=== PATIENT | female | born 1955 | race Caucasian/White ===

== ENCOUNTER 2018-08-03 11:19 | Inpatient (IN) | payer OTHER, SELFPAY ==
[2018-08-03] VITALS (20 sets, daily range): BP systolic 98–113; BP diastolic 60–69; PULSE 93–125; RESP 13–23; TEMP 36.6–37.6; O2SAT 95–100; BMI 17.3; BMI 16.9
--- NOTE | 2018-08-03 11:32 | CT_ITS ---
STUDY: CT ABDOMEN AND PELVIS WITH CONTRAST REASON FOR EXAM: Female, 63 years old. Weight loss. Bloody stools. RADIATION DOSAGE (If Supplied By Facility): CTDIvol = ( 11.35 ) mGy, DLP = ( 294.85 ) mGycm TECHNIQUE: Transaxial images were obtained from the dome of the diaphragm to the symphysis pubis with oral contrast. 100ML ml of Isovue 300 contrast was administered. Sagittal and coronal images were reconstructed. Individualized dose optimization techniques were used for this CT. COMPARISON: None. FINDINGS: There is a 1.4 cm x 1.3 cm x 1.5 cm lobulated nodule in the peripheral lateral aspect of the right lower lobe. The visualized portions of the heart are within normal limits. Normal liver. Normal gallbladder and extrahepatic biliary system. Normal spleen. Normal pancreas. Normal bilateral adrenal glands. Normal right kidney. Normal left kidney. Normal visualized stomach. Normal small intestine. There is a 9.9 cm x 6.5 cm x 10.1 cm mass arising from the rectosigmoid colon. A neoplastic process should be ruled out. Large amount of fecal material is seen in the colon in keeping with constipation. Prominent venous channels are seen in the pelvis suggestive of a venous collateral flow. The appendix is visualized and appears normal. Normal abdominal aorta. Normal inferior vena cava. Normal retroperitoneum. Normal urinary bladder. Normal abdominal wall. Grade 1 anterolisthesis of L5 on S1 with spondylolysis of the pars intraarticularis at the L5 vertebrae. CT/Abdomen/Pelvis WITH Contrast IMPRESSION: Large mass in the rectosigmoid junction with a large amount of fecal material proximal to this. A neoplastic process should BE ruled out. Lobulated nodular density in the lateral posterior aspect of the right lower lobe. Electronically Signed: Shukri Lacy MD at 13:45 EDT Tel [phone], Service support ,
--- NOTE | 2018-08-03 11:37 | ED.VISSUMM ---
- ER Visit Summary Date of Service: 08/03/18 Chief Complaint: Rectal bleeding History of Present Illness: The patient is a 63 F who presents with rectal bleeding. Started 3 days ago. She states she has had blood and mucus in her stool for that amount of time. She states that she does feel lightheaded. She was diagnosed as anemic previously. She denies any abdominal pain, nausea or vomiting. She has never had a colonoscopy in the past. She denies any recent antibiotic use. No history of C. difficile. No exposures to C. difficile. Physical Examination: Vital signs reviewed. HEENT exam unremarkable. Heart is tachycardic and regular rhythm. She does have a 3/6 musical systolic murmur heard best in the lower left sternal border. lungs are clear to auscultation. Abdomen is soft and nontender. Extremities reveal no edema. Skin exam normal. Neurologic exam normal. Test Results: Hemoglobin is 4.3, white blood cell count 15.8, sodium 135, AST 11, ALT 12. FOBT positive. CAT scan reveals a rectosigmoid mass. Emergency Department Course and Treatment: Patient was given 2 units of packed red blood cells due to the anemia. The CAT scan is concerning for a mass which could be the cause of the bleeding. This would explain why the patient tells me she has been having some weight loss over the past couple of months. I discussed this with Dr. Calle who will see the patient in consult. I also discussed this with hospitalist for admission. Patient will be admitted to PCU stepdown Treatment Plan: [] Disposition: Admit Impression: Lower GI bleed, colon mass This note was generated with [employer] dictation software. It may contain incorrect words, spelling, and punctuation that were not noted in review of the chart prior to signing ED Disposition - Plan for ED Patient: Chief Complaint: GI Bleed
[2018-08-03 12:11] LABS: Absolute Lymphocyte Count 1.95 X10^3/ul (0.83-4.51); Absolute Neutrophil Count 13.1 X10^3/uL (2.0-7.7); Basophil# 0.02 X10^3/uL; Basophil% 0.1 % (0-1); Eosinophil# 0.06 X10^3/uL; Eosinophils% 0.4 % (0-5); Lymphocyte # 1.95 X10^3/ul (4.0); Lymphocyte % 12.3 % (19-41); Mean Corp Hgb Conc 26.9 g/gl (32-36); Mean Corpuscular Hgb 17.7 pg (27.0-32.0); Mean Corpuscular Volume 65.8 fL (81-99); Mean Platelet Vol. 7.6 fl (6.2-12.0); Monocyte# 0.65 X10^3/uL; Monocyte% 4.1 % (0-10); Neutrophil % 82.9 % (47-70); Platelet Count 508 K/mm3 (150-450); RBC Distribution Width CV 17.7 % (11.6-14.6); RBC Distribution Width SD 42.9 fl (35.1-43.9); Red Blood Count 2.43 M/mm3 (4.2-5.4); White Blood Count 15.8 K/mm3 (4.4-11.0)
[2018-08-03 12:12] LABS: Differential Indicated SCAN CRITERIA MET; Hemoglobin 4.3 g/dl (12.0-15.0); POSITIVE COUNT YES; POSITIVE DIFFERENTIAL NO; POSITIVE MORPHOLOGY YES
--- NOTE | 2018-08-03 12:12 | ED.RN ---
Received critical result from [facility]ani from lab. Hemoglobin 4.3, Dr. Hanks aware.
[2018-08-03 12:27] LABS: ALB/GLOB Ratio 0.5 RATIO (0.9-2.4); AST(SGOT) 11 U/L (15-37); Alanine Aminotransfer ALT/SGPT 12 U/L (13-56); Albumin, Serum 2.2 g/dL (3.2-5.0); Alkaline Phosphatase 76 U/L (45-117); Anion Gap 9 (5-15); BUN 16 mg/dL (7-18); BUN/Creat Ratio 25.5 RATIO (10-20); Chloride 100 mmol/L (98-107); Creatinine, Serum 0.63 mg/dL (0.55-1.02); EST Glomerular Filtration Rate 103 mL/min (>60); Est Glom Filt Rate - Afr Amer 124 mL/min (>60); Estimated Creatinine Clearance 69.87 ml/min; Globulin 4.2 g/dL (2.2-4.2); Glucose 178 mg/dL (74-106); Hypochromasia 3+; Microcytosis 2+; Polychromasia 1+; Potassium 3.3 mmol/L (3.5-5.1); Protein, Total 6.4 g/dL (6.4-8.2); Sodium Level 135 mmol/L (136-145)
--- NOTE | 2018-08-03 14:39 | PCM.HP.STD ---
Problem List (1) Lung nodule Status: Acute (2) Rectosigmoid mass Status: Acute (3) GI bleed Status: Acute (4) Acute blood loss anemia Status: Acute History of Present Illness Date of Admission: 08/03/18 Chief Complaint: Rectal bleeding. The patient is a 63 year old F with no significant past medical history presented to the emergency department because of rectal bleeding. Her symptoms started 3 days ago with blood per rectum, mixed with mucus, described it as large amount, followed by loose stool and then she had another bloody bowel movement last night with large amount of blood and also followed by loose stool and without aggravating or relieving factors. Today when she woke up from sleep, she felt very weak, tired, dizzy and she had episode of palpitation. She denies syncope, presyncope, chest pain or shortness of breath. She denied epistaxis, hemoptysis, hematemesis or hematuria. She denied epigastric pain or heartburn. She mentioned that she was diagnosed with anemia a few months ago [place] PCP [facility] [place] and she was informed that it would be managed by diet. She mentioned that he has been complaining of weakness and fatigue over the last several months and she lost large amount of weight unintentionally. She moved to [place] recently and her relatives who did not see her for long time was shocked because of the amount of weight she lost. In the emergency department, initially she was tachycardic but her blood pressure stable and her heart rate stabilized after IV fluids. Her routine blood work was remarkable for leukocytosis, hemoglobin of 4.3 g/dL, platelet count were normal and her potassium was 3.3. Her glucose was 178. LFT and troponin were negative. CT scan abdomen and pelvis with contrast revealed large rectosigmoid mass as well as right lower lobe lung nodule. She is being admitted for GI bleed, acute blood loss anemia, a rectosigmoid mass, right lower lobe lung mass as well as hypokalemia. 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 Paternal History Items: No pertinent history Review of Systems Constitutional: Reports: Weakness, Weight Change, Fatigue. Denies: Anorexia, Chills, Fever Eyes: Denies: Blurred vision, Double vision, Drainage, Redness HEENT: Denies: Difficulty Hearing, Ear Pain, Eye Pain, Nasal Congestion, Sore Throat Cardiovascular: Reports: Light Headedness, Palpitations. Denies: Chest Pain, Chest Pressure, Chest Tightness, Syncope Respiratory: Denies: Cough, Pleuritic Pain, Shortness of Breath, Shortness of breath upon exertion, Sputum production, Wheezing Gastrointestinal: Reports: Hematochezia. Denies: Abdominal Pain, Constipation, Diarrhea, Nausea, Vomiting Genitourinary: Denies: Dysuria, Frequency, Hematuria Musculoskeletal: Denies: Arm Pain, Back Pain, Foot Pain Skin: Denies: Dryness, Rash Neurological: Denies: Balance problems, Double vision, Change in Speech, Slurred speech, Confusion, Incoordination, Numbness, Tingling Psychiatric: Denies: Anxiety, Depression Endocrine: Denies: Change in Body Habitus, Polydipsia VTE Information - Inpt Only VTE Present on Admission: No VTE Mechan Device Prophylaxis: None VTE Pharm Prophylaxis ordered?: No Patient Problems: Active and Suspected Problems Lung nodule (Acute) Rectosigmoid mass (Acute) GI bleed (Acute) Acute blood loss anemia (Acute) - Physical Exam General: Alert, Oriented x3, Cooperative, No apparent distress, - - Cachexia, pale. HEENT: Atraumatic, PERRLA, EOMI Oral: Moist Mucosa, No Gingival or Mucosal Lesions/ Ulcerations Neck: Supple, No JVD, Negative Carotid Bruits, Trachea Midline, Thyroid Normal Size and Texture Lungs: Clear to auscultation, Normal air movement, No rhonchi, No wheeze, No rales Cardiovascular: Regular rate, Regular Rhythm, Normal S1, Normal S2, Bradycardic Abdomen: Bowel Sounds Present, Soft, Non Tender, Non-Distended, No Hepato-splenomegaly Extremities: No clubbing, No cyanosis, No edema Skin: No rashes, No breakdown Lymphatic: No Cervical, Supraclavicular, or Inguinal Adenopathy Neurological: Cranial nerves II-XII grossly intact, Motor Exam 5/5 strength throughout Psych/Mental Status: Normal Affect, Appropriate, Alert and oriented to time, place, person, mood and affect Vital Signs Temp Pulse Resp BP Pulse Ox 98.8 F 93 18 106/61 95 08/03/18 13:51 08/03/18 13:51 08/03/18 13:51 08/03/18 13:51 08/03/18 13:51 Oxygen Delivery Method Room Air Weight: 104 lb 0.931 oz Body Mass Index (BMI) 17.3 Intake and Output for Last 24 Hours 08/01/18 08/02/18 08/03/18 23:59 23:59 23:59 Intake Total 0 / 0 Balance 0 / 0 Microbiology Past 72 Hours 08/03/18 11:50 Stool Occult Blood (BILL) - Final Stool Occult Blood Positive Laboratory Tests Past 24 Hrs 08/03/18 08/03/18 08/03/18 11:50 11:50 12:00 WBC 15.8 H RBC 2.43 L Hgb 4.3 L* Hct 16.0 L MCV 65.8 L MCH 17.7 L MCHC 26.9 L RDW 17.7 H RDW Differential 42.9 Plt Count 508 H MPV 7.6 Immature Gran % (Auto) 0.200 Neut % (Auto) 82.9 H Lymph % (Auto) 12.3 L [place] % (Auto) 4.1 Eos % (Auto) 0.4 Baso % (Auto) 0.1 Absolute Neuts (auto) 13.1 H Absolute Lymphs (auto) 1.95 Total Counted Not Reportable Diff Path Review May foll Polychromasia 1+ Hypochromasia 3+ Microcytosis 2+ Sodium Potassium Chloride Carbon Dioxide Anion Gap BUN Creatinine Estim Creat Clear Calc Est GFR (MDRD) Af Amer Est GFR (MDRD) Non-Af BUN/Creatinine Ratio Glucose Calcium Total Bilirubin AST ALT Alkaline Phosphatase Troponin I Total Protein Albumin Globulin Albumin/Globulin Ratio Blood Type Antibody Screen Crossmatch See Detail See Detail 08/03/18 08/03/18 12:00 12:00 WBC RBC Hgb Hct MCV MCH MCHC RDW RDW Differential Plt Count MPV Immature Gran % (Auto) Neut % (Auto) Lymph % (Auto) [place] % (Auto) Eos % (Auto) Baso % (Auto) Absolute Neuts (auto) Absolute Lymphs (auto) Total Counted Diff Path Review Polychromasia Hypochromasia Microcytosis Sodium 135 L Potassium 3.3 L Chloride 100 Carbon Dioxide 26.0 Anion Gap 9 BUN 16 Creatinine 0.63 Estim Creat Clear Calc 69.87 Est GFR (MDRD) Af Amer 124 Est GFR (MDRD) Non-Af 103 BUN/Creatinine Ratio 25.5 H Glucose 178 H Calcium 8.0 L Total Bilirubin 0.30 AST 11 L ALT 12 L Alkaline Phosphatase 76 Troponin I < 0.015 Total Protein 6.4 Albumin 2.2 L Globulin 4.2 Albumin/Globulin Ratio 0.5 L Blood Type A POSITIVE Antibody Screen NEGATIVE Crossmatch Clinical Impression(s) from Imaging Studies Abdomen/Pelvis CT 08/03/18 11:32 IMPRESSION: Large mass in the rectosigmoid junction with a large amount of fecal material proximal to this. A neoplastic process should BE ruled out. Lobulated nodular density in the lateral posterior aspect of the right lower lobe. Electronically Signed: Shukri Lacy MD at 13:45 EDT Tel [phone], Service support , Assessment/Plan All Active Problems Lung nodule (Acute) Rectosigmoid mass (Acute) GI bleed (Acute) Acute blood loss anemia (Acute) This is a 63 years old female patient presented to the emergency room because of rectal bleeding and she was found to have acute severe symptomatic blood loss anemia, rectosigmoid mass, right lower lobe lung nodule as well as hypokalemia and she is being admitted for blood transfusion and evaluation for possible malignancy. #1 acute blood loss anemia: This is likely because of lower GI bleed secondary to large rectosigmoid mass which could be due to malignancy. Admission hemoglobin is 4.3 g with sitter. At this time, her vital signs are stable, blood pressure stable. Plan: Admit to PCU stepdown, complete bedrest, IV fluids, transfuse total of 4 units of packed RBCs, repeat CBC and BMP tomorrow morning, pro time and INR, serum iron, TIBC, serum ferritin, TSH, PT OT evaluation and treatment. #2 GI bleed: This is probably due to the rectosigmoid mass, other differential diagnosis, be excluded. Plan: Blood transfusion, keep on clear liquids, general surgery consult for colonoscopy and biopsy. #3 rectosigmoid mass: Highly suspicious for colon cancer. Patient has no family history of colon cancer but history of breast cancer is evident on the mother side of her family. She never had colonoscopy. Plan as above, general surgery consult, colonoscopy. #4 right lower lobe lung nodule: This is seen on the CT scan abdomen. Could be due to benign or malignant. Plan: CT scan chest with contrast, pulmonology consult. #5 hypokalemia/mild hyponatremia: Potassium is 3.3, sodium is 135. Plan to increase potassium with IV fluids, repeat BMP tomorrow morning. #6 leukocytosis: This is likely reactive secondary to severe anemia. No evidence of infectious process. Plan as above, repeat CBC tomorrow morning. #7 hyperglycemia: Without history of diabetes. Glucose is 178. Plan: Accu-Cheks every 6 hours, hemoglobin A1c. #8 DVT prophylaxis: SCDs. No chemical prophylaxis because of anemia and rectal bleeding. This note was generated with [employer] dictation software. It may contain incorrect words, spelling, and punctuation that were not noted in checking the note before signing. Code Visit Inpatient E&M: 07477 Init Hosp L3
--- NOTE | 2018-08-03 14:45 | HP.PCM_ITS ---
Problem List (1) Lung nodule Status: Acute (2) Rectosigmoid mass Status: Acute (3) GI bleed Status: Acute (4) Acute blood loss anemia Status: Acute History of Present Illness Date of Admission: 08/03/18 Chief Complaint: Rectal bleeding. The patient is a 63 year old F with no significant past medical history presented to the emergency department because of rectal bleeding. Her symptoms started 3 days ago with blood per rectum, mixed with mucus, described it as large amount, followed by loose stool and then she had another bloody bowel movement last night with large amount of blood and also followed by loose stool and without aggravating or relieving factors. Today when she woke up from sleep, she felt very weak, tired, dizzy and she had episode of palpitation. She denies syncope, presyncope, chest pain or shortness of breath. She denied epistaxis, hemoptysis, hematemesis or hematuria. She denied epigastric pain or heartburn. She mentioned that she was diagnosed with anemia a few months ago [place] and she was informed that it would be managed by diet. She mentioned that he has been complaining of weakness and fatigue over the last several months and she lost large amount of weight unintentionally. She moved to [place] recently and her relatives who did not see her for long time was s hocked because of the amount of weight she lost. In the emergency department, initially she was tachycardic but her blood pressure stable and her heart rate stabilized after IV fluids. Her routine blood work was remarkable for leukocytosis, hemoglobin of 4.3 g/dL, platelet count were normal and her potassium was 3.3. Her glucose was 178. LFT and troponin were negative. CT scan abdomen and pelvis with contrast revealed large rectosigmoid mass as well as right lower lobe lung nodule. She is being admitted for GI bleed, acute blood loss anemia, a rectosigmoid mass, right lower lobe lung mass as well as hypokalemia. 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 Paternal History Items: No pertinent history Review of Systems Constitutional: Reports: Weakness, Weight Change, Fatigue. Denies: Anorexia, Chills, Fever Eyes: Denies: Blurred vision, Double vision, Drainage, Redness HEENT: Denies: Difficulty Hearing, Ear Pain, Eye Pain, Nasal Congestion, Sore Throat Cardiovascular: Reports: Light Headedness, Palpitations. Denies: Chest Pain, Chest Pressure, Chest Tightness, Syncope Respiratory: Denies: Cough, Pleuritic Pain, Shortness of Breath, Shortness of breath upon exertion, Sputum production, Wheezing Gastrointestinal: Reports: Hematochezia. Denies: Abdominal Pain, Constipation, Diarrhea, Nausea, Vomiting Genitourinary: Denies: Dysuria, Frequency, Hematuria Musculoskeletal: Denies: Arm Pain, Back Pain, Foot Pain Skin: Denies: Dryness, Rash Neurological: Denies: Balance problems, Double vision, Change in Speech, Slurred speech, Confusion, Incoordination, Numbness, Tingling Psychiatric: Denies: Anxiety, Depression Endocrine: Denies: Change in Body Habitus, Polydipsia VTE Information - Inpt Only VTE Present on Admission: No VTE Mechan Device Prophylaxis: None VTE Pharm Prophylaxis ordered?: No Patient Problems: Active and Suspected Problems Lung nodule (Acute) Rectosigmoid mass (Acute) GI bleed (Acute) Acute blood loss anemia (Acute) - Physical Exam General: Alert, Oriented x3, Cooperative, No apparent distress, - - Cachexia, pale. HEENT: Atraumatic, PERRLA, EOMI Oral: Moist Mucosa, No Gingival or Mucosal Lesions/ Ulcerations Neck: Supple, No JVD, Negative Carotid Bruits, Trachea Midline, Thyroid Normal Size and Texture Lungs: Clear to auscultation, Normal air movement, No rhonchi, No wheeze, No rales Cardiovascular: Regular rate, Regular Rhythm, Normal S1, Normal S2, Bradycardic Abdomen: Bowel Sounds Present, Soft, Non Tender, Non-Distended, No Hepato-splenomegaly Extremities: No clubbing, No cyanosis, No edema Skin: No rashes, No breakdown Lymphatic: No Cervical, Supraclavicular, or Inguinal Adenopathy Neurological: Cranial nerves II-XII grossly intact, Motor Exam 5/5 strength throughout Psych/Mental Status: Normal Affect, Appropriate, Alert and oriented to time, place, person, mood and affect Vital Signs Temp Pulse Resp BP Pulse Ox 98.8 F 93 18 106/61 95 08/03/18 13:51 08/03/18 13:51 08/03/18 13:51 08/03/18 13:51 08/03/18 13:51 Oxygen Delivery Method Room Air Weight: 104 lb 0.931 oz Body Mass Index (BMI) 17.3 Intake and Output for Last 24 Hours 08/01/18 08/02/18 08/03/18 23:59 23:59 23:59 Intake Total 0 / 0 Balance 0 / 0 Microbiology Past 72 Hours 08/03/18 11:50 Stool Occult Blood (BILL) - Final Stool Occult Blood Positive Laboratory Tests Past 24 Hrs 08/03/18 08/03/18 08/03/18 11:50 11:50 12:00 WBC 15.8 H RBC 2.43 L Hgb 4.3 L* Hct 16.0 L MCV 65.8 L MCH 17.7 L MCHC 26.9 L RDW 17.7 H RDW Differential 42.9 Plt Count 508 H MPV 7.6 Immature Gran % (Auto) 0.200 Neut % (Auto) 82.9 H Lymph % (Auto) 12.3 L [place] % (Auto) 4.1 Eos % (Auto) 0.4 Baso % (Auto) 0.1 Absolute Neuts (auto) 13.1 H Absolute Lymphs (auto) 1.95 Total Counted Not Reportable Diff Path Review May foll Polychromasia 1+ Hypochromasia 3+ Microcytosis 2+ Sodium Potassium Chloride Carbon Dioxide Anion Gap BUN Creatinine Estim Creat Clear Calc Est GFR (MDRD) Af Amer Est GFR (MDRD) Non-Af BUN/Creatinine Ratio Glucose Calcium Total Bilirubin AST ALT Alkaline Phosphatase Troponin I Total Protein Albumin Globulin Albumin/Globulin Ratio Blood Type Antibody Screen Crossmatch See Detail See Detail 08/03/18 08/03/18 12:00 12:00 WBC RBC Hgb Hct MCV MCH MCHC RDW RDW Differential Plt Count MPV Immature Gran % (Auto) Neut % (Auto) Lymph % (Auto) [place] % (Auto) Eos % (Auto) Baso % (Auto) Absolute Neuts (auto) Absolute Lymphs (auto) Total Counted Diff Path Review Polychromasia Hypochromasia Microcytosis Sodium 135 L Potassium 3.3 L Chloride 100 Carbon Dioxide 26.0 Anion Gap 9 BUN 16 Creatinine 0.63 Estim Creat Clear Calc 69.87 Est GFR (MDRD) Af Amer 124 Est GFR (MDRD) Non-Af 103 BUN/Creatinine Ratio 25.5 H Glucose 178 H Calcium 8.0 L Total Bilirubin 0.30 AST 11 L ALT 12 L Alkaline Phosphatase 76 Troponin I < 0.015 Total Protein 6.4 Albumin 2.2 L Globulin 4.2 Albumin/Globulin Ratio 0.5 L Blood Type A POSITIVE Antibody Screen NEGATIVE Crossmatch Clinical Impression(s) from Imaging Studies Abdomen/Pelvis CT 08/03/18 11:32 IMPRESSION: Large mass in the rectosigmoid junction with a large amount of fecal material proximal to this. A neoplastic process should BE ruled out. Lobulated nodular density in the lateral posterior aspect of the right lower lobe. Electronically Signed: Shukri Lacy MD at 13:45 EDT Tel [phone], Service support , Assessment/Plan All Active Problems Lung nodule (Acute) Rectosigmoid mass (Acute) GI bleed (Acute) Acute blood loss anemia (Acute) This is a 63 years old female patient presented to the emergency room because of rectal bleeding and she was found to have acute severe symptomatic blood loss anemia, rectosigmoid mass, right lower lobe lung nodule as well as hypokalemia and she is being admitted for blood transfusion and evaluation for possible malignancy. #1 acute blood loss anemia: This is likely because of lower GI bleed secondary to large rectosigmoid mass which could be due to malignancy. Admission hemoglobin is 4.3 g with sitter. At this time, her vital signs are stable, blood pressure stable. Plan: Admit to PCU stepdown, complete bedrest, IV fluids, transfuse total of 4 units of packed RBCs, repeat CBC and BMP tomorrow morning, pro time and INR, serum iron, TIBC, serum ferritin, TSH, PT OT evaluation and treatment. #2 GI bleed: This is probably due to the rectosigmoid mass, other differential diagnosis, be excluded. Plan: Blood transfusion, keep on clear liquids, general surgery consult for colonoscopy and biopsy. #3 rectosigmoid mass: Highly suspicious for colon cancer. Patient has no family history of colon cancer but history of breast cancer is evident on the mother side of her family. She never had colonoscopy. Plan as above, general surgery consult, colonoscopy. #4 right lower lobe lung nodule: This is seen on the CT scan abdomen. Could be due to benign or malignant. Plan: CT scan chest with contrast, pulmonology consult. #5 hypokalemia/mild hyponatremia: Potassium is 3.3, sodium is 135. Plan to increase potassium with IV fluids, repeat BMP tomorrow morning. #6 leukocytosis: This is likely reactive secondary to severe anemia. No evidence of infectious process. Plan as above, repeat CBC tomorrow morning. #7 hyperglycemia: Without history of diabetes. Glucose is 178. Plan: Accu- Cheks every 6 hours, hemoglobin A1c. #8 DVT prophylaxis: SCDs. No chemical prophylaxis because of anemia and rectal bleeding. This note was generated with [employer] dictation software. It may contain incorrect words, spelling, and punctuation that were not noted in checking the note before signing. Code Visit Inpatient E&M: 03266 Init Hosp L3
[2018-08-03 14:54] LABS: International Normalized Ratio 1.1; Prothrombin Time (Protime)PT. 14.6 SECONDS (11.7-14.9)
[2018-08-03 14:55] LABS: Partial Thromboplast Time 28.7 Seconds (24.1-36.2)
--- NOTE | 2018-08-03 16:15 | PCM.CONS.GEN ---
Problem List (1) Rectosigmoid mass Status: Acute (2) GI bleed Status: Acute (3) Acute blood loss anemia Status: Acute Reason for Consult Date of Consultation: 08/03/18 Reason for Consultation: Acute anemia. Rectosigmoid mass History of Present Illness: The patient is a 63 year old F who presents with a 2 day history of rectal bleeding. Patient noted she started to lose weight in last year intentionally. She noted when she lost the weight that she intended to, the weight continued to come off. She noted in January of this year she had change in bowel habits. She noted being seen by her then PCP who noted she was anemic. She noted she was told to correct her anemia by diet change which she did and thought this worked for a short period of time. 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 Two nights ago she had blood in her stool along with white mucous. She notes her stools are mostly liquidy. She denies hemorrhoids. She denies melena. She noted she became more fatigued and weak yesterday morning which brought her to the ED. She notes she has lost 25 pounds since August of 2017. She denies family history of colon cancer. She denies having previous colonoscopy. Patient does not take routine daily medications. She denies previous surgeries. 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 Paternal History Items: No pertinent history Review of Systems Constitutional: Reports: Anorexia, Weakness, Weight Change, Fatigue HEENT: Denies: Head Aches, Sinus Congestion, Sinus Drainage Cardiovascular: Denies: Chest Pain, Palpitations Respiratory: Denies: Cough, Shortness of breath at rest, Sputum production Gastrointestinal: Reports: Diarrhea, Hematochezia Genitourinary: Denies: Dysuria Musculoskeletal: Denies: Joint Pain, Joint Tenderness Skin: Denies: Rash, Wounds Neurological: Denies: Numbness, Tingling, Focal weakness Psychiatric: Denies: Anxiety, Depression, Homicidal Ideations, Suicidal Ideations Hematologic/ Lymphatic: Reports: Anemia Patient Problems: Active and Suspected Problems Lung nodule (Acute) Rectosigmoid mass (Acute) GI bleed (Acute) Acute blood loss anemia (Acute) - Physical Exam General: Alert, Oriented x3, Cooperative HEENT: Atraumatic, PERRLA, EOMI, Normocephalic Neck: Supple, No JVD, Negative Carotid Bruits Lungs: Clear to auscultation, Normal air movement Cardiovascular: Regular rate, No murmurs Abdomen: Bowel Sounds Present, Soft, Non Tender Extremities: No edema, Capillary Refill Less than 3 Seconds Skin: No rashes, No breakdown Musculoskeletal: No Tenderness to Palpation of Joints or Extremities Neurological: Neuro grossly intact Psych/Mental Status: Normal Affect, Appropriate Vital Signs Temp Pulse Resp BP Pulse Ox 98.5 F 94 16 104/66 100 08/03/18 16:00 08/03/18 16:00 08/03/18 16:00 08/03/18 16:00 08/03/18 16:00 Oxygen Delivery Method Room Air Weight: 103 lb 2.821 oz Body Mass Index (BMI) 16.9 Intake and Output for Last 24 Hours 08/01/18 08/02/18 08/03/18 23:59 23:59 23:59 Intake Total 400 / 400 Balance 400 / 400 Microbiology Past 72 Hours 08/03/18 11:50 Stool Occult Blood (BILL) - Final Stool Occult Blood Positive Laboratory Tests Past 24 Hrs 08/03/18 08/03/18 08/03/18 11:50 11:50 12:00 WBC 15.8 H RBC 2.43 L Hgb 4.3 L* Hct 16.0 L MCV 65.8 L MCH 17.7 L MCHC 26.9 L RDW 17.7 H RDW Differential 42.9 Plt Count 508 H MPV 7.6 Immature Gran % (Auto) 0.200 Neut % (Auto) 82.9 H Lymph % (Auto) 12.3 L [place] % (Auto) 4.1 Eos % (Auto) 0.4 Baso % (Auto) 0.1 Absolute Neuts (auto) 13.1 H Absolute Lymphs (auto) 1.95 Total Counted Not Reportable Diff Path Review May foll Polychromasia 1+ Hypochromasia 3+ Microcytosis 2+ PT INR APTT Sodium Potassium Chloride Carbon Dioxide Anion Gap BUN Creatinine Estim Creat Clear Calc Est GFR (MDRD) Af Amer Est GFR (MDRD) Non-Af BUN/Creatinine Ratio Glucose Calcium Total Bilirubin AST ALT Alkaline Phosphatase Troponin I Total Protein Albumin Globulin Albumin/Globulin Ratio Blood Type Antibody Screen Crossmatch See Detail See Detail 08/03/18 08/03/18 08/03/18 12:00 12:00 14:40 WBC RBC Hgb Hct MCV MCH MCHC RDW RDW Differential Plt Count MPV Immature Gran % (Auto) Neut % (Auto) Lymph % (Auto) [place] % (Auto) Eos % (Auto) Baso % (Auto) Absolute Neuts (auto) Absolute Lymphs (auto) Total Counted Diff Path Review Polychromasia Hypochromasia Microcytosis PT 14.6 INR 1.1 APTT 28.7 Sodium 135 L Potassium 3.3 L Chloride 100 Carbon Dioxide 26.0 Anion Gap 9 BUN 16 Creatinine 0.63 Estim Creat Clear Calc 69.87 Est GFR (MDRD) Af Amer 124 Est GFR (MDRD) Non-Af 103 BUN/Creatinine Ratio 25.5 H Glucose 178 H Calcium 8.0 L Total Bilirubin 0.30 AST 11 L ALT 12 L Alkaline Phosphatase 76 Troponin I < 0.015 Total Protein 6.4 Albumin 2.2 L Globulin 4.2 Albumin/Globulin Ratio 0.5 L Blood Type A POSITIVE Antibody Screen NEGATIVE Crossmatch Assessment/Plan All Active Problems Lung nodule (Acute) Rectosigmoid mass (Acute) GI bleed (Acute) Acute blood loss anemia (Acute) I have been consulted in conjunction with Dr. Calle to evaluate this patient Impression: Rectosigmoid mass. Acute GI bleed. Anemia Plan: Patient was discussed with Dr. Calle. Patient will need medical maximization. Dr. Calle will plan to perform an upper and lower scope on Friday with possible biopsies. Procedure details, risks and benefits have been explained to the patient. Patient has had the opportunity to ask and have questions answered. Patient verbally understands and agrees with the plan. Thank you for allowing me to participate in this patient's care. My recommendations will be available via electronic medical records. Code Visit Office Visits / Consults: [id number] IP Consult L3
[2018-08-03 17:04] LABS: Hemoglobin A1c < 3.5 % (4.2-6.3)
[2018-08-03 17:15] LABS: Ferritin 10 ng/mL (8-252); Iron 9 ug/dL (50-170); Iron Binding Capacity,Total 173 ug/dL (250-450); PERCENT IRON SATURATION 5.2 % (15.0-55.0); Thyroid Stim Hormone (TSH) 2.11 uIU/mL (0.358-3.74)
[2018-08-03 18:21] LABS: Bedside Glucose 121 mg/dL (70-110)
[2018-08-03 23:40] LABS: Absolute Lymphocyte Count 1.73 X10^3/ul (0.83-4.51); Absolute Neutrophil Count 12.5 X10^3/uL (2.0-7.7); Basophil# 0.04 X10^3/uL; Basophil% 0.3 % (0-1); Eosinophils% 0.6 % (0-5); Hemoglobin 9.1 g/dl (12.0-15.0); Lymphocyte # 1.73 X10^3/ul (4.0); Lymphocyte % 11.2 % (19-41); Mean Corp Hgb Conc 32.5 g/gl (32-36); Mean Corpuscular Hgb 24.7 pg (27.0-32.0); Mean Corpuscular Volume 75.9 fL (81-99); Mean Platelet Vol. 8.3 fl (6.2-12.0); Monocyte# 0.99 X10^3/uL; Monocyte% 6.4 % (0-10); Neutrophil # 12.49 X10^3/uL (2.7-7.7); Neutrophil % 80.7 % (47-70); Platelet Count 502 K/mm3 (150-450); RBC Distribution Width CV 20.5 % (11.6-14.6); RBC Distribution Width SD 53.8 fl (35.1-43.9); Red Blood Count 3.69 M/mm3 (4.2-5.4); White Blood Count 15.5 K/mm3 (4.4-11.0)
[2018-08-03 23:41] LABS: Differential Indicated SCAN CRITERIA MET; POSITIVE COUNT NO; POSITIVE DIFFERENTIAL NO; POSITIVE MORPHOLOGY YES
[2018-08-04] VITALS (19 sets, daily range): BP systolic 98–122; BP diastolic 60–75; PULSE 83–102; RESP 15–21; TEMP 36.6–37.3; O2SAT 96–99
[2018-08-04 00:10] LABS: Differential Comment SCANNED
[2018-08-04 00:11] LABS: Anisocytosis 3+; Hypochromasia 2+; Target Cells 1+
[2018-08-04 00:50] LABS: Bedside Glucose 111 mg/dL (70-110)
[2018-08-04 05:41] LABS: Bedside Glucose 113 mg/dL (70-110)
[2018-08-04 07:50] LABS: Absolute Lymphocyte Count 1.96 X10^3/ul (0.83-4.51); Basophil# 0.03 X10^3/uL; Basophil% 0.2 % (0-1); Eosinophil# 0.06 X10^3/uL; Eosinophils% 0.4 % (0-5); Lymphocyte # 1.96 X10^3/ul (4.0); Lymphocyte % 12.8 % (19-41); Mean Corp Hgb Conc 32.1 g/gl (32-36); Mean Corpuscular Hgb 24.2 pg (27.0-32.0); Mean Corpuscular Volume 75.3 fL (81-99); Mean Platelet Vol. 8.2 fl (6.2-12.0); Monocyte# 1.22 X10^3/uL; Monocyte% 7.9 % (0-10); Neutrophil # 11.96 X10^3/uL (2.7-7.7); Neutrophil % 77.9 % (47-70); Platelet Count 488 K/mm3 (150-450); RBC Distribution Width CV 20.3 % (11.6-14.6); RBC Distribution Width SD 53.8 fl (35.1-43.9); Red Blood Count 3.72 M/mm3 (4.2-5.4); White Blood Count 15.4 K/mm3 (4.4-11.0)
[2018-08-04 07:54] LABS: Differential Indicated SCAN CRITERIA MET; POSITIVE COUNT NO; POSITIVE DIFFERENTIAL NO; POSITIVE MORPHOLOGY YES
[2018-08-04 07:58] LABS: Anion Gap 8 (5-15); BUN 13 mg/dL (7-18); BUN/Creat Ratio 31.9 RATIO (10-20); Chloride 107 mmol/L (98-107); Creatinine, Serum 0.41 mg/dL (0.55-1.02); EST Glomerular Filtration Rate 169 mL/min (>60); Est Glom Filt Rate - Afr Amer 205 mL/min (>60); Estimated Creatinine Clearance 106.46 ml/min; Glucose 107 mg/dL (74-106); Potassium 4.1 mmol/L (3.5-5.1); Sodium Level 140 mmol/L (136-145)
--- NOTE | 2018-08-04 11:10 | PN.SURG_ITS ---
Patient Problems: Active and Suspected Problems Lung nodule (Acute) Rectosigmoid mass (Acute) GI bleed (Acute) Acute blood loss anemia (Acute) Subjective: Patient evaluated resting comfortably in bed. She denies abdominal pain/discomfort. She had an uneventful night. She received 4 units of PRBC yesterday. - Physical Exam General: Alert, Oriented x3, Cooperative Abdomen: Bowel Sounds Present, Soft, Non Tender Vital Signs Temp Pulse Resp BP Pulse Ox 98.1 F 94 17 98/67 98 08/04/18 05:00 08/04/18 10:59 08/04/18 08:00 08/04/18 08:00 08/04/18 08:00 Oxygen Delivery Method Room Air Weight: 103 lb 2.821 oz Body Mass Index (BMI) 16.9 Intake and Output for Last 24 Hours 08/02/18 08/03/18 08/04/18 23:59 23:59 23:59 Intake Total 3025 / 3025 943 / 943 Balance 3025 / 3025 943 / 943 Microbiology Past 72 Hours 08/03/18 11:50 Stool Occult Blood (BILL) - Final Stool Occult Blood Positive Laboratory Tests Past 24 Hrs 08/03/18 08/03/18 08/03/18 11:50 11:50 11:50 WBC RBC Hgb Hct MCV MCH MCHC RDW RDW Differential Plt Count MPV Immature Gran % (Auto) Neut % (Auto) Lymph % (Auto) [place] % (Auto) Eos % (Auto) Baso % (Auto) Absolute Neuts (auto) Absolute Lymphs (auto) Total Counted Differential Comment Diff Path Review Polychromasia Hypochromasia Anisocytosis Microcytosis Target Cells PT INR APTT Sodium Potassium Chloride Carbon Dioxide Anion Gap BUN Creatinine Estim Creat Clear Calc Est GFR (MDRD) Af Amer Est GFR (MDRD) Non-Af BUN/Creatinine Ratio Glucose Hemoglobin A1c Calcium Iron TIBC Iron Saturation Ferritin Total Bilirubin AST ALT Alkaline Phosphatase Troponin I Total Protein Albumin Globulin Albumin/Globulin Ratio Carcinoembryonic Ag TSH Blood Type Antibody Screen Crossmatch See Detail See Detail See Detail 08/03/18 08/03/18 08/03/18 12:00 12:00 12:00 WBC 15.8 H RBC 2.43 L Hgb 4.3 L* Hct 16.0 L MCV 65.8 L MCH 17.7 L MCHC 26.9 L RDW 17.7 H RDW Differential 42.9 Plt Count 508 H MPV 7.6 Immature Gran % (Auto) 0.200 Neut % (Auto) 82.9 H Lymph % (Auto) 12.3 L [place] % (Auto) 4.1 Eos % (Auto) 0.4 Baso % (Auto) 0.1 Absolute Neuts (auto) 13.1 H Absolute Lymphs (auto) 1.95 Total Counted Not Reportable Differential Comment Diff Path Review May foll Polychromasia 1+ Hypochromasia 3+ Anisocytosis Microcytosis 2+ Target Cells PT INR APTT Sodium 135 L Potassium 3.3 L Chloride 100 Carbon Dioxide 26.0 Anion Gap 9 BUN 16 Creatinine 0.63 Estim Creat Clear Calc 69.87 Est GFR (MDRD) Af Amer 124 Est GFR (MDRD) Non-Af 103 BUN/Creatinine Ratio 25.5 H Glucose 178 H Hemoglobin A1c Calcium 8.0 L Iron TIBC Iron Saturation Ferritin Total Bilirubin 0.30 AST 11 L ALT 12 L Alkaline Phosphatase 76 Troponin I < 0.015 Total Protein 6.4 Albumin 2.2 L Globulin 4.2 Albumin/Globulin Ratio 0.5 L Carcinoembryonic Ag TSH Blood Type A POSITIVE Antibody Screen NEGATIVE Crossmatch 08/03/18 08/03/18 08/03/18 12:00 12:00 14:40 WBC RBC Hgb Hct MCV MCH MCHC RDW RDW Differential Plt Count MPV Immature Gran % (Auto) Neut % (Auto) Lymph % (Auto) [place] % (Auto) Eos % (Auto) Baso % (Auto) Absolute Neuts (auto) Absolute Lymphs (auto) Total Counted Differential Comment Diff Path Review Polychromasia Hypochromasia Anisocytosis Microcytosis Target Cells PT 14.6 INR 1.1 APTT 28.7 Sodium Potassium Chloride Carbon Dioxide Anion Gap BUN Creatinine Estim Creat Clear Calc Est GFR (MDRD) Af Amer Est GFR (MDRD) Non-Af BUN/Creatinine Ratio Glucose Hemoglobin A1c < 3.5 L Calcium Iron 9 L TIBC 173 L Iron Saturation 5.2 L Ferritin 10 Total Bilirubin AST ALT Alkaline Phosphatase Troponin I Total Protein Albumin Globulin Albumin/Globulin Ratio Carcinoembryonic Ag TSH 2.11 Blood Type Antibody Screen Crossmatch 08/03/18 08/04/18 08/04/18 22:51 07:06 07:06 WBC 15.5 H 15.4 H RBC 3.69 L 3.72 L Hgb 9.1 L 9.0 L Hct 28.0 L 28.0 L MCV 75.9 L 75.3 L MCH 24.7 L 24.2 L MCHC 32.5 32.1 RDW 20.5 H 20.3 H RDW Differential 53.8 H 53.8 H Plt Count 502 H 488 H MPV 8.3 8.2 Immature Gran % (Auto) 0.800 0.800 Neut % (Auto) 80.7 H 77.9 H Lymph % (Auto) 11.2 L 12.8 L [place] % (Auto) 6.4 7.9 Eos % (Auto) 0.6 0.4 Baso % (Auto) 0.3 0.2 Absolute Neuts (auto) 12.5 H 12.0 H Absolute Lymphs (auto) 1.73 1.96 Total Counted Not Reportable Pending Differential Comment SCANNED COMMENT Diff Path Review Polychromasia Hypochromasia 2+ Anisocytosis 3+ Microcytosis Target Cells 1+ PT INR APTT Sodium Potassium Chloride Carbon Dioxide Anion Gap BUN Creatinine Estim Creat Clear Calc Est GFR (MDRD) Af Amer Est GFR (MDRD) Non-Af BUN/Creatinine Ratio Glucose Hemoglobin A1c Calcium Iron TIBC Iron Saturation Ferritin Total Bilirubin AST ALT Alkaline Phosphatase Troponin I Total Protein Albumin Globulin Albumin/Globulin Ratio Carcinoembryonic Ag Pending TSH Blood Type Antibody Screen Crossmatch 08/04/18 07:06 WBC RBC Hgb Hct MCV MCH MCHC RDW RDW Differential Plt Count MPV Immature Gran % (Auto) Neut % (Auto) Lymph % (Auto) [place] % (Auto) Eos % (Auto) Baso % (Auto) Absolute Neuts (auto) Absolute Lymphs (auto) Total Counted Differential Comment Diff Path Review Polychromasia Hypochromasia Anisocytosis Microcytosis Target Cells PT INR APTT Sodium 140 Potassium 4.1 Chloride 107 Carbon Dioxide 25.0 Anion Gap 8 BUN 13 Creatinine 0.41 L Estim Creat Clear Calc 106.46 Est GFR (MDRD) Af Amer 205 Est GFR (MDRD) Non-Af 169 BUN/Creatinine Ratio 31.9 H Glucose 107 H Hemoglobin A1c Calcium 8.0 L Iron TIBC Iron Saturation Ferritin Total Bilirubin AST ALT Alkaline Phosphatase Troponin I Total Protein Albumin Globulin Albumin/Globulin Ratio Carcinoembryonic Ag TSH Blood Type Antibody Screen Crossmatch POC Glucose 08/04/18 08/04/18 08/03/18 05:36 00:46 18:14 POC Glucose 113 H 111 H 121 H Medical Necessity - Tobacco Use Smoking Status: Never smoker Assessment/Plan All Active Problems Lung nodule (Acute) Rectosigmoid mass (Acute) GI bleed (Acute) Acute blood loss anemia (Acute) I am following this patient in conjunction with Dr. Calle Acute anemia. Rectosigmoid mass. Bowel Prep patient today for upper and lower scope tomorrow at 10:[address] Calle Labs reviewed We will continue to monitor this patient Code Visit Inpatient E&M: 09992 Subs Hosp L1
[2018-08-04 12:33] LABS: Pathologist Review Reviewed
--- NOTE | 2018-08-04 12:54 | PCM.CONS.GEN ---
Problem List (1) Unintentional weight loss Status: Acute (2) Lung nodule Status: Acute (3) Rectosigmoid mass Status: Acute (4) GI bleed Status: Acute (5) Acute blood loss anemia Status: Acute Reason for Consult Date of Consultation: 08/04/18 Reason for Consultation: Lung nodule History of Present Illness: The patient is a 63 year old F, with past medical history listed below, who presented to [facility] on 08/03/2018 secondary to rectal bleeding. Patient reports that she initially started to modify her diet in August to achieve weight loss. Over the last 3-4 months, patient has gone back to her baseline diet but has continued to lose weight. Patient states that she has had mucousy type stool since August, but 3 days prior to admission started to have blood per rectum that was loose and significant in volume. Patient denied any associated fever, chills, nausea or vomiting. Patient does state that she was noted to be iron deficient anemia in the past, but has been using dietary modification. Since admission to the hospital patient feels her condition is overall stabilized. Patient has been seen by surgery and there is a plan for EGD and colonoscopy to be completed on 08/05/2018. Patient states that she has had significant weight loss, but never has been in the habit of checking her weight, so the exact weight loss is unclear. Patient did state that her family noted significant differences in her appearance after moving back home. Patient denies any history of respiratory symptoms. Patient has never been a smoker and denies any exposure to asbestos or tuberculosis. Patient denies any exposure to birds or caves. Patient was living in [facility] for some time, but was not aware of any exposures that led to acute hospitalizations. Patient denies any trauma. Review of systems otherwise negative x10 systems. 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 Paternal History Items: No pertinent history Review of Systems Comment: See HPI, otherwise negative x 10 systems Patient Problems: Active and Suspected Problems Unintentional weight loss (Acute) Lung nodule (Acute) Rectosigmoid mass (Acute) GI bleed (Acute) Acute blood loss anemia (Acute) Objective: Abdominal CT and chest CT was personally reviewed with the patient. Nodule of interest was pointed out and described. - Physical Exam General: Alert, Oriented x3, Cooperative, No apparent distress, - - Cachectic. Temporal wasting noted. No conversational dyspnea. HEENT: Atraumatic, PERRLA, EOMI, Normocephalic, - - No scleral icterus or injection noted. Oral: No Gingival or Mucosal Lesions/ Ulcerations, Dry Mucosa Neck: Supple, No JVD, No Nodes, Trachea Midline Lungs: Clear to auscultation, Normal air movement, No rhonchi, No wheeze, No rales, - - Symmetric expansion. No dullness to percussion. Cardiovascular: Regular rate, Regular Rhythm, Normal S1, Normal S2, No murmurs, No rub noted, No Gallop Abdomen: Bowel Sounds Present, Soft, Non Tender, Non-Distended Extremities: No clubbing, No cyanosis, No edema, Capillary Refill Less than 3 Seconds Skin: No rashes, No breakdown Musculoskeletal: No Tenderness to Palpation of Joints or Extremities, Cachexia, Muscle Wasting Lymphatic: No Cervical, Supraclavicular, or Inguinal Adenopathy Neurological: Cranial nerves II-XII grossly intact, Neuro grossly intact, Motor Exam 5/5 strength throughout Psych/Mental Status: Alert and oriented to time, place, person, mood and affect Vital Signs Temp Pulse Resp BP Pulse Ox 37.3 C H 91 16 104/66 98 08/04/18 11:00 08/04/18 11:00 08/04/18 11:00 08/04/18 11:00 08/04/18 11:00 Oxygen Delivery Method Room Air Weight: 46.8 kg Body Mass Index (BMI) 16.9 Intake and Output for Last 24 Hours 08/02/18 08/03/18 08/04/18 23:59 23:59 23:59 Intake Total 3025 / 3025 2202 / 2202 Balance 3025 / 3025 2202 / 2202 Microbiology Past 72 Hours 08/03/18 11:50 Stool Occult Blood (BILL) - Final Stool Occult Blood Positive Laboratory Tests Past 24 Hrs 08/03/18 08/03/18 08/03/18 11:50 11:50 11:50 WBC RBC Hgb Hct MCV MCH MCHC RDW RDW Differential Plt Count MPV Immature Gran % (Auto) Neut % (Auto) Lymph % (Auto) [place] % (Auto) Eos % (Auto) Baso % (Auto) Absolute Neuts (auto) Absolute Lymphs (auto) Total Counted Differential Comment Diff Path Review Hypochromasia Anisocytosis Target Cells PT INR APTT Sodium Potassium Chloride Carbon Dioxide Anion Gap BUN Creatinine Estim Creat Clear Calc Est GFR (MDRD) Af Amer Est GFR (MDRD) Non-Af BUN/Creatinine Ratio Glucose Hemoglobin A1c Calcium Iron TIBC Iron Saturation Ferritin Carcinoembryonic Ag TSH Blood Type Antibody Screen Crossmatch See Detail See Detail See Detail 08/03/18 08/03/18 08/03/18 12:00 12:00 12:00 WBC RBC Hgb Hct MCV MCH MCHC RDW RDW Differential Plt Count MPV Immature Gran % (Auto) Neut % (Auto) Lymph % (Auto) [place] % (Auto) Eos % (Auto) Baso % (Auto) Absolute Neuts (auto) Absolute Lymphs (auto) Total Counted Differential Comment Diff Path Review Reviewed Hypochromasia Anisocytosis Target Cells PT INR APTT Sodium Potassium Chloride Carbon Dioxide Anion Gap BUN Creatinine Estim Creat Clear Calc Est GFR (MDRD) Af Amer Est GFR (MDRD) Non-Af BUN/Creatinine Ratio Glucose Hemoglobin A1c < 3.5 L Calcium Iron TIBC Iron Saturation Ferritin Carcinoembryonic Ag TSH Blood Type A POSITIVE Antibody Screen NEGATIVE Crossmatch 08/03/18 08/03/18 08/03/18 12:00 14:40 22:51 WBC 15.5 H RBC 3.69 L Hgb 9.1 L Hct 28.0 L MCV 75.9 L MCH 24.7 L MCHC 32.5 RDW 20.5 H RDW Differential 53.8 H Plt Count 502 H MPV 8.3 Immature Gran % (Auto) 0.800 Neut % (Auto) 80.7 H Lymph % (Auto) 11.2 L [place] % (Auto) 6.4 Eos % (Auto) 0.6 Baso % (Auto) 0.3 Absolute Neuts (auto) 12.5 H Absolute Lymphs (auto) 1.73 Total Counted Not Reportable Differential Comment SCANNED Diff Path Review Hypochromasia 2+ Anisocytosis 3+ Target Cells 1+ PT 14.6 INR 1.1 APTT 28.7 Sodium Potassium Chloride Carbon Dioxide Anion Gap BUN Creatinine Estim Creat Clear Calc Est GFR (MDRD) Af Amer Est GFR (MDRD) Non-Af BUN/Creatinine Ratio Glucose Hemoglobin A1c Calcium Iron 9 L TIBC 173 L Iron Saturation 5.2 L Ferritin 10 Carcinoembryonic Ag TSH 2.11 Blood Type Antibody Screen Crossmatch 08/04/18 08/04/18 08/04/18 07:06 07:06 07:06 WBC 15.4 H RBC 3.72 L Hgb 9.0 L Hct 28.0 L MCV 75.3 L MCH 24.2 L MCHC 32.1 RDW 20.3 H RDW Differential 53.8 H Plt Count 488 H MPV 8.2 Immature Gran % (Auto) 0.800 Neut % (Auto) 77.9 H Lymph % (Auto) 12.8 L [place] % (Auto) 7.9 Eos % (Auto) 0.4 Baso % (Auto) 0.2 Absolute Neuts (auto) 12.0 H Absolute Lymphs (auto) 1.96 Total Counted Pending Differential Comment COMMENT Diff Path Review Hypochromasia Anisocytosis Target Cells PT INR APTT Sodium 140 Potassium 4.1 Chloride 107 Carbon Dioxide 25.0 Anion Gap 8 BUN 13 Creatinine 0.41 L Estim Creat Clear Calc 106.46 Est GFR (MDRD) Af Amer 205 Est GFR (MDRD) Non-Af 169 BUN/Creatinine Ratio 31.9 H Glucose 107 H Hemoglobin A1c Calcium 8.0 L Iron TIBC Iron Saturation Ferritin Carcinoembryonic Ag Pending TSH Blood Type Antibody Screen Crossmatch POC Glucose 08/04/18 08/04/18 08/03/18 05:36 00:46 18:14 POC Glucose 113 H 111 H 121 H Clinical Impression(s) from Imaging Studies Abdomen/Pelvis CT 08/03/18 11:32 IMPRESSION: Large mass in the rectosigmoid junction with a large amount of fecal material proximal to this. A neoplastic process should BE ruled out. Lobulated nodular density in the lateral posterior aspect of the right lower lobe. Electronically Signed: Shukri Lacy MD at 13:45 EDT Tel [phone], Service support , Chest CT 08/04/18 13:00 IMPRESSION: Solitary 1.8 cm x 1.1 cm lobulated nodule in the peripheral lateral aspect of the right lower lobe. Correlation with a PET scan is recommended. Electronically Signed: Shukri Lacy MD at 12:26 EDT Tel [phone], Service support , Assessment/Plan All Active Problems Unintentional weight loss (Acute) Lung nodule (Acute) Rectosigmoid mass (Acute) GI bleed (Acute) Acute blood loss anemia (Acute) RECOMMENDATIONS: 1. Continue with EGD/colonoscopy as planned 2. Obtain PET scan if positive for cancer 3. CT-guided biopsy of chest nodule if negative for cancer on colonoscopy IMPRESSIONS: 1. Lung nodule Clinical suspicion for metastatic colon cancer given rectosigmoid mass. Patient is to have a colonoscopy and EGD for evaluation. If found to have colon cancer, a PET scan should be obtained to see if this area is hypermetabolic. Outpatient pulmonary follow-up would likely not be indicated. If colonoscopy biopsy does not show cancer, a CT-guided biopsy would be the appropriate approach for this lung nodule. Patient would need to be followed-up by pulmonary as an outpatient in this instance. If abscess or infectious source is noted, would likely still proceed with a CT-guided biopsy of lung nodule given its appearance. No other lesions are noted. No significant mediastinal adenopathy is noted, so endobronchial ultrasound would be of limited utility. Patient is at low risk for lung cancer by a historical perspective. 2. Unintentional weight loss/leukocytosis/hyponatremia/hypokalemia/acute blood loss anemia Locates care, management, recovery and prognosis. Cannot rule out a paraneoplastic syndrome with the hyponatremia. Patient has responded to blood transfusions. Code Visit Inpatient E&M: 00617 Init Hosp L2
--- NOTE | 2018-08-04 13:00 | CT_ITS ---
STUDY: CT CHEST WITH CONTRAST REASON FOR EXAM: Female, 63 years old. Lung nodule. Recent diagnosis of colonic mass. RADIATION DOSAGE (If Supplied By Facility): CTDIvol = ( 7.25 ) mGy, DLP = ( 163.3 ) mGycm TECHNIQUE: Transaxial imaging was performed following intravenous administration of 80ML ml of Isovue 300 contrast material. Multiplanar coronal and sagittal images were reformatted. Individualized dose optimization techniques were used for this CT. COMPARISON: Comparison is made with prior CT scan of the abdomen dated August 03, 2018. FINDINGS: There is a 1.8 cm x 1.1 cm lobulated nodule in the peripheral lateral aspect of the right lower lobe. Correlation with a PET scan is recommended for further evaluation. No other nodule is seen. There is no demonstrated pleural abnormality. Normal heart and pericardium. Normal mediastinum. Normal hilar regions. Normal enhanced pulmonary arteries. Normal aorta arch and descending thoracic aorta. There are mild degenerative changes of the thoracic spine. There is no demonstrated abnormality of the visualized upper abdomen. CT/Chest WITH Contrast IMPRESSION: Solitary 1.8 cm x 1.1 cm lobulated nodule in the peripheral lateral aspect of the right lower lobe. Correlation with a PET scan is recommended. Electronically Signed: Shukri Lacy MD at 12:26 EDT Tel [phone], Service support ,
--- NOTE | 2018-08-04 13:01 | CON.PCM_ITS ---
Problem List (1) Unintentional weight loss Status: Acute (2) Lung nodule Status: Acute (3) Rectosigmoid mass Status: Acute (4) GI bleed Status: Acute (5) Acute blood loss anemia Status: Acute Reason for Consult Date of Consultation: 08/04/18 Reason for Consultation: Lung nodule History of Present Illness: The patient is a 63 year old F, with past medical history listed below, who presented to [facility] on 08/03/2018 secondary to rectal bleeding. Patient reports that she initially started to modify her diet in August to achieve weight loss. Over the last 3-4 months, patient has gone back to her baseline diet but has continued to lose weight. Patient states that she has had mucousy type stool since August, but 3 days prior to admission started to have blood per rectum that was loose and significant in volume. Patient denied any a ssociated fever, chills, nausea or vomiting. Patient does state that she was noted to be iron deficient anemia in the past, but has been using dietary modification. Since admission to the hospital patient feels her condition is overall stabilized. Patient has been seen by surgery and there is a plan for EGD and colonoscopy to be completed on 08/05/2018. Patient states that she has had significant weight loss, but never has been in the habit of checking her weight, so the exact weight loss is unclear. Patient did state that her family noted significant differences in her appearance after moving back home. Patient denies any history of respiratory symptoms. Patient has never been a smoker and denies any exposure to asbestos or tuberculosis. Patient denies any exposure to birds or caves. Patient was living in [facility] for some time, but was not aware of any exposures that led to acute hospitalizations. Patient denies any trauma. Review of systems otherwise negative x10 systems. 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 Paternal History Items: No pertinent history Review of Systems Comment: See HPI, otherwise negative x 10 systems Patient Problems: Active and Suspected Problems Unintentional weight loss (Acute) Lung nodule (Acute) Rectosigmoid mass (Acute) GI bleed (Acute) Acute blood loss anemia (Acute) Objective: Abdominal CT and chest CT was personally reviewed with the patient. Nodule of interest was pointed out and described. - Physical Exam General: Alert, Oriented x3, Cooperative, No apparent distress, - - Cachectic. Temporal wasting noted. No conversational dyspnea. HEENT: Atraumatic, PERRLA, EOMI, Normocephalic, - - No scleral icterus or injection noted. Oral: No Gingival or Mucosal Lesions/ Ulcerations, Dry Mucosa Neck: Supple, No JVD, No Nodes, Trachea Midline Lungs: Clear to auscultation, Normal air movement, No rhonchi, No wheeze, No rales, - - Symmetric expansion. No dullness to percussion. Cardiovascular: Regular rate, Regular Rhythm, Normal S1, Normal S2, No murmurs, No rub noted, No Gallop Abdomen: Bowel Sounds Present, Soft, Non Tender, Non-Distended Extremities: No clubbing, No cyanosis, No edema, Capillary Refill Less than 3 Seconds Skin: No rashes, No breakdown Musculoskeletal: No Tenderness to Palpation of Joints or Extremities, Cachexia, Muscle Wasting Lymphatic: No Cervical, Supraclavicular, or Inguinal Adenopathy Neurological: Cranial nerves II-XII grossly intact, Neuro grossly intact, Motor Exam 5/5 strength throughout Psych/Mental Status: Alert and oriented to time, place, person, mood and affect Vital Signs Temp Pulse Resp BP Pulse Ox 37.3 C H 91 16 104/66 98 08/04/18 11:00 08/04/18 11:00 08/04/18 11:00 08/04/18 11:00 08/04/18 11:00 Oxygen Delivery Method Room Air Weight: 46.8 kg Body Mass Index (BMI) 16.9 Intake and Output for Last 24 Hours 08/02/18 08/03/18 08/04/18 23:59 23:59 23:59 Intake Total 3025 / 3025 2202 / 2202 Balance 3025 / 3025 2202 / 2202 Microbiology Past 72 Hours 08/03/18 11:50 Stool Occult Blood (BILL) - Final Stool Occult Blood Positive Laboratory Tests Past 24 Hrs 08/03/18 08/03/18 08/03/18 11:50 11:50 11:50 WBC RBC Hgb Hct MCV MCH MCHC RDW RDW Differential Plt Count MPV Immature Gran % (Auto) Neut % (Auto) Lymph % (Auto) [place] % (Auto) Eos % (Auto) Baso % (Auto) Absolute Neuts (auto) Absolute Lymphs (auto) Total Counted Differential Comment Diff Path Review Hypochromasia Anisocytosis Target Cells PT INR APTT Sodium Potassium Chloride Carbon Dioxide Anion Gap BUN Creatinine Estim Creat Clear Calc Est GFR (MDRD) Af Amer Est GFR (MDRD) Non-Af BUN/Creatinine Ratio Glucose Hemoglobin A1c Calcium Iron TIBC Iron Saturation Ferritin Carcinoembryonic Ag TSH Blood Type Antibody Screen Crossmatch See Detail See Detail See Detail 08/03/18 08/03/18 08/03/18 12:00 12:00 12:00 WBC RBC Hgb Hct MCV MCH MCHC RDW RDW Differential Plt Count MPV Immature Gran % (Auto) Neut % (Auto) Lymph % (Auto) [place] % (Auto) Eos % (Auto) Baso % (Auto) Absolute Neuts (auto) Absolute Lymphs (auto) Total Counted Differential Comment Diff Path Review Reviewed Hypochromasia Anisocytosis Target Cells PT INR APTT Sodium Potassium Chloride Carbon Dioxide Anion Gap BUN Creatinine Estim Creat Clear Calc Est GFR (MDRD) Af Amer Est GFR (MDRD) Non-Af BUN/Creatinine Ratio Glucose Hemoglobin A1c < 3.5 L Calcium Iron TIBC Iron Saturation Ferritin Carcinoembryonic Ag TSH Blood Type A POSITIVE Antibody Screen NEGATIVE Crossmatch 08/03/18 08/03/18 08/03/18 12:00 14:40 22:51 WBC 15.5 H RBC 3.69 L Hgb 9.1 L Hct 28.0 L MCV 75.9 L MCH 24.7 L MCHC 32.5 RDW 20.5 H RDW Differential 53.8 H Plt Count 502 H MPV 8.3 Immature Gran % (Auto) 0.800 Neut % (Auto) 80.7 H Lymph % (Auto) 11.2 L [place] % (Auto) 6.4 Eos % (Auto) 0.6 Baso % (Auto) 0.3 Absolute Neuts (auto) 12.5 H Absolute Lymphs (auto) 1.73 Total Counted Not Reportable Differential Comment SCANNED Diff Path Review Hypochromasia 2+ Anisocytosis 3+ Target Cells 1+ PT 14.6 INR 1.1 APTT 28.7 Sodium Potassium Chloride Carbon Dioxide Anion Gap BUN Creatinine Estim Creat Clear Calc Est GFR (MDRD) Af Amer Est GFR (MDRD) Non-Af BUN/Creatinine Ratio Glucose Hemoglobin A1c Calcium Iron 9 L TIBC 173 L Iron Saturation 5.2 L Ferritin 10 Carcinoembryonic Ag TSH 2.11 Blood Type Antibody Screen Crossmatch 08/04/18 08/04/18 08/04/18 07:06 07:06 07:06 WBC 15.4 H RBC 3.72 L Hgb 9.0 L Hct 28.0 L MCV 75.3 L MCH 24.2 L MCHC 32.1 RDW 20.3 H RDW Differential 53.8 H Plt Count 488 H MPV 8.2 Immature Gran % (Auto) 0.800 Neut % (Auto) 77.9 H Lymph % (Auto) 12.8 L [place] % (Auto) 7.9 Eos % (Auto) 0.4 Baso % (Auto) 0.2 Absolute Neuts (auto) 12.0 H Absolute Lymphs (auto) 1.96 Total Counted Pending Differential Comment COMMENT Diff Path Review Hypochromasia Anisocytosis Target Cells PT INR APTT Sodium 140 Potassium 4.1 Chloride 107 Carbon Dioxide 25.0 Anion Gap 8 BUN 13 Creatinine 0.41 L Estim Creat Clear Calc 106.46 Est GFR (MDRD) Af Amer 205 Est GFR (MDRD) Non-Af 169 BUN/Creatinine Ratio 31.9 H Glucose 107 H Hemoglobin A1c Calcium 8.0 L Iron TIBC Iron Saturation Ferritin Carcinoembryonic Ag Pending TSH Blood Type Antibody Screen Crossmatch POC Glucose 08/04/18 08/04/18 08/03/18 05:36 00:46 18:14 POC Glucose 113 H 111 H 121 H Clinical Impression(s) from Imaging Studies Abdomen/Pelvis CT 08/03/18 11:32 IMPRESSION: Large mass in the rectosigmoid junction with a large amount of fecal material proximal to this. A neoplastic process should BE ruled out. Lobulated nodular density in the lateral posterior aspect of the right lower lobe. Electronically Signed: Shukri Lacy MD at 13:45 EDT Tel [phone], Service support , Chest CT 08/04/18 13:00 IMPRESSION: Solitary 1.8 cm x 1.1 cm lobulated nodule in the peripheral lateral aspect of the right lower lobe. Correlation with a PET scan is recommended. Electronically Signed: Shukri Lacy MD at 12:26 EDT Tel [phone], Service support , Assessment/Plan All Active Problems Unintentional weight loss (Acute) Lung nodule (Acute) Rectosigmoid mass (Acute) GI bleed (Acute) Acute blood loss anemia (Acute) RECOMMENDATIONS: 1. Continue with EGD/colonoscopy as planned 2. Obtain PET scan if positive for cancer 3. CT-guided biopsy of chest nodule if negative for cancer on colonoscopy IMPRESSIONS: 1. Lung nodule Clinical suspicion for metastatic colon cancer given rectosigmoid mass. Patient is to have a colonoscopy and EGD for evaluation. If found to have colon cancer, a PET scan should be obtained to see if this area is hypermetabolic. Outpatient pulmonary follow-up would likely not be indicated. If colonoscopy biopsy does not show cancer, a CT-guided biopsy would be the appropriate approach for this lung nodule. Patient would need to be followed-up by pulmonary as an outpatient in this instance. If abscess or infectious source is noted, would likely still proceed with a CT-guided biopsy of lung nodule given its appearance. No other lesions are noted. No significant mediastinal adenopathy is noted, so endobronchial ultrasound would be of limited utility. P atient is at low risk for lung cancer by a historical perspective. 2. Unintentional weight loss/leukocytosis/hyponatremia/hypokalemia/acute blood loss anemia Locates care, management, recovery and prognosis. Cannot rule out a paraneoplastic syndrome with the hyponatremia. Patient has responded to blood transfusions. Code Visit Inpatient E&M: 35872 Init Hosp L2
--- NOTE | 2018-08-04 13:10 | PCM.PROGNOTE ---
<Rajani Brito - Last Filed: 08/04/18 13:19> Patient Problems: Active and Suspected Problems Unintentional weight loss (Acute) Lung nodule (Acute) Rectosigmoid mass (Acute) GI bleed (Acute) Acute blood loss anemia (Acute) Subjective: Patient seen and examined. States she had loose bowel movement this morning. Denies blood in stool. Denies dizziness, lightheadedness. Denies chest pain, shortness of breath. Denies abdominal pain. - Physical Exam General: Alert, Oriented x3, Cooperative, No apparent distress HEENT: Atraumatic, PERRLA, EOMI, Normocephalic Neck: Supple, No JVD, Negative Carotid Bruits Lungs: Clear to auscultation, Normal air movement Cardiovascular: Regular rate, Regular Rhythm, Normal S1, Normal S2, No murmurs Abdomen: Bowel Sounds Present, Soft, Non Tender, Non-Distended Extremities: No clubbing, No cyanosis, No edema, Capillary Refill Less than 3 Seconds Skin: No rashes, No breakdown Musculoskeletal: No Tenderness to Palpation of Joints or Extremities Neurological: Cranial nerves II-XII grossly intact, Neuro grossly intact Psych/Mental Status: Normal Affect, Appropriate Vital Signs Temp Pulse Resp BP Pulse Ox 99.2 F H 91 16 104/66 98 08/04/18 11:00 08/04/18 11:00 08/04/18 11:00 08/04/18 11:00 08/04/18 11:00 Oxygen Delivery Method Room Air Weight: 103 lb 2.821 oz Body Mass Index (BMI) 16.9 Intake and Output for Last 24 Hours 08/02/18 08/03/18 08/04/18 23:59 23:59 23:59 Intake Total 3025 / 3025 2202 / 2202 Balance 3025 / 3025 2202 / 2202 Microbiology Past 72 Hours 08/03/18 11:50 Stool Occult Blood (BILL) - Final Stool Occult Blood Positive Laboratory Tests Past 24 Hrs 08/03/18 08/03/18 08/03/18 11:50 11:50 11:50 WBC RBC Hgb Hct MCV MCH MCHC RDW RDW Differential Plt Count MPV Immature Gran % (Auto) Neut % (Auto) Lymph % (Auto) [place] % (Auto) Eos % (Auto) Baso % (Auto) Absolute Neuts (auto) Absolute Lymphs (auto) Total Counted Differential Comment Diff Path Review Hypochromasia Anisocytosis Target Cells PT INR APTT Sodium Potassium Chloride Carbon Dioxide Anion Gap BUN Creatinine Estim Creat Clear Calc Est GFR (MDRD) Af Amer Est GFR (MDRD) Non-Af BUN/Creatinine Ratio Glucose Hemoglobin A1c Calcium Iron TIBC Iron Saturation Ferritin Carcinoembryonic Ag TSH Blood Type Antibody Screen Crossmatch See Detail See Detail See Detail 08/03/18 08/03/18 08/03/18 12:00 12:00 12:00 WBC RBC Hgb Hct MCV MCH MCHC RDW RDW Differential Plt Count MPV Immature Gran % (Auto) Neut % (Auto) Lymph % (Auto) [place] % (Auto) Eos % (Auto) Baso % (Auto) Absolute Neuts (auto) Absolute Lymphs (auto) Total Counted Differential Comment Diff Path Review Reviewed Hypochromasia Anisocytosis Target Cells PT INR APTT Sodium Potassium Chloride Carbon Dioxide Anion Gap BUN Creatinine Estim Creat Clear Calc Est GFR (MDRD) Af Amer Est GFR (MDRD) Non-Af BUN/Creatinine Ratio Glucose Hemoglobin A1c < 3.5 L Calcium Iron TIBC Iron Saturation Ferritin Carcinoembryonic Ag TSH Blood Type A POSITIVE Antibody Screen NEGATIVE Crossmatch 08/03/18 08/03/18 08/03/18 12:00 14:40 22:51 WBC 15.5 H RBC 3.69 L Hgb 9.1 L Hct 28.0 L MCV 75.9 L MCH 24.7 L MCHC 32.5 RDW 20.5 H RDW Differential 53.8 H Plt Count 502 H MPV 8.3 Immature Gran % (Auto) 0.800 Neut % (Auto) 80.7 H Lymph % (Auto) 11.2 L [place] % (Auto) 6.4 Eos % (Auto) 0.6 Baso % (Auto) 0.3 Absolute Neuts (auto) 12.5 H Absolute Lymphs (auto) 1.73 Total Counted Not Reportable Differential Comment SCANNED Diff Path Review Hypochromasia 2+ Anisocytosis 3+ Target Cells 1+ PT 14.6 INR 1.1 APTT 28.7 Sodium Potassium Chloride Carbon Dioxide Anion Gap BUN Creatinine Estim Creat Clear Calc Est GFR (MDRD) Af Amer Est GFR (MDRD) Non-Af BUN/Creatinine Ratio Glucose Hemoglobin A1c Calcium Iron 9 L TIBC 173 L Iron Saturation 5.2 L Ferritin 10 Carcinoembryonic Ag TSH 2.11 Blood Type Antibody Screen Crossmatch 08/04/18 08/04/18 08/04/18 07:06 07:06 07:06 WBC 15.4 H RBC 3.72 L Hgb 9.0 L Hct 28.0 L MCV 75.3 L MCH 24.2 L MCHC 32.1 RDW 20.3 H RDW Differential 53.8 H Plt Count 488 H MPV 8.2 Immature Gran % (Auto) 0.800 Neut % (Auto) 77.9 H Lymph % (Auto) 12.8 L [place] % (Auto) 7.9 Eos % (Auto) 0.4 Baso % (Auto) 0.2 Absolute Neuts (auto) 12.0 H Absolute Lymphs (auto) 1.96 Total Counted Pending Differential Comment COMMENT Diff Path Review Hypochromasia Anisocytosis Target Cells PT INR APTT Sodium 140 Potassium 4.1 Chloride 107 Carbon Dioxide 25.0 Anion Gap 8 BUN 13 Creatinine 0.41 L Estim Creat Clear Calc 106.46 Est GFR (MDRD) Af Amer 205 Est GFR (MDRD) Non-Af 169 BUN/Creatinine Ratio 31.9 H Glucose 107 H Hemoglobin A1c Calcium 8.0 L Iron TIBC Iron Saturation Ferritin Carcinoembryonic Ag Pending TSH Blood Type Antibody Screen Crossmatch POC Glucose 08/04/18 08/04/18 08/03/18 05:36 00:46 18:14 POC Glucose 113 H 111 H 121 H Medical Necessity - Tobacco Use Smoking Status: Never smoker Assessment/Plan All Active Problems Unintentional weight loss (Acute) Lung nodule (Acute) Rectosigmoid mass (Acute) GI bleed (Acute) Acute blood loss anemia (Acute) 1. Acute blood loss anemia secondary to GI bleed-CT of abdomen and pelvis showed large rectosigmoid mass as well as right lower lobe lung nodule. Stool positive for occult blood. Hemoglobin 4.3 on admission. Status post 4 units PRBC. Clear liquid diet. N.p.o. after midnight. Upper and lower scope tomorrow with Dr. Calle. Trend CBC. 2. Rectosigmoid mass, suspicious for colon cancer-no prior colonoscopy. General surgery on board. Plan for scope tomorrow with bx. 3. Right lower lobe lung nodule-as noted on CT of abdomen. Unclear etiology. Pulmonary consulted. 4. Leukocytosis-suspect reactive secondary to #1. Trend CBC. 5. Hypokalemia/hyponatremia-resolved. Trend BMP. DVT prophylaxis-SCDs. This patient was seen by INEZ Lance under the supervision of Dr. Cotto. <YadielEnio - Last Filed: 08/04/18 16:09> Subjective: Seen and examined in the morning. Patient was admitted yesterday night for symptomatic anemia with generalized weakness, shortness of breath on exertion. No abdominal pain. Patient states her stool characteristic/shape has changed and not continuous but small like ball. patient also lost weight about 25 pounds in 6 months. Patient was admitted with hemoglobin 4.3 which increased to 9 g% after 4 units of PRBC transfusion. Overall subjective improvement. - Physical Exam General: Alert, Oriented x3, Cooperative HEENT: Atraumatic, PERRLA, EOMI, Normocephalic Neck: Supple, No JVD, Negative Carotid Bruits Lungs: Clear to auscultation, Normal air movement, No rhonchi, No wheeze, No rales Cardiovascular: Regular rate, Normal S1, Normal S2, No murmurs Abdomen: Bowel Sounds Present, Soft, Non Tender, Non-Distended, - - No mass palpated Extremities: No edema, Capillary Refill Less than 3 Seconds Skin: No rashes, No breakdown Vital Signs Temp Pulse Resp BP Pulse Ox 99.2 F H 102 H 16 104/66 98 08/04/18 11:00 08/04/18 15:02 08/04/18 11:00 08/04/18 11:00 08/04/18 11:00 Oxygen Delivery Method Room Air Weight: 103 lb 2.821 oz Body Mass Index (BMI) 16.9 Intake and Output for Last 24 Hours 08/02/18 08/03/18 08/04/18 23:59 23:59 23:59 Intake Total 3025 / 3025 2202 / 2202 Balance 3025 / 3025 2202 / 2202 Microbiology Past 72 Hours 08/03/18 11:50 Stool Occult Blood (BILL) - Final Stool Occult Blood Positive Laboratory Tests Past 24 Hrs 08/03/18 08/03/18 08/03/18 11:50 11:50 11:50 WBC RBC Hgb Hct MCV MCH MCHC RDW RDW Differential Plt Count MPV Immature Gran % (Auto) Neut % (Auto) Lymph % (Auto) [place] % (Auto) Eos % (Auto) Baso % (Auto) Absolute Neuts (auto) Absolute Lymphs (auto) Total Counted Differential Comment Diff Path Review Hypochromasia Anisocytosis Target Cells Sodium Potassium Chloride Carbon Dioxide Anion Gap BUN Creatinine Estim Creat Clear Calc Est GFR (MDRD) Af Amer Est GFR (MDRD) Non-Af BUN/Creatinine Ratio Glucose Hemoglobin A1c Calcium Iron TIBC Iron Saturation Ferritin Carcinoembryonic Ag TSH Crossmatch See Detail See Detail See Detail 08/03/18 08/03/18 08/03/18 12:00 12:00 12:00 WBC RBC Hgb Hct MCV MCH MCHC RDW RDW Differential Plt Count MPV Immature Gran % (Auto) Neut % (Auto) Lymph % (Auto) [place] % (Auto) Eos % (Auto) Baso % (Auto) Absolute Neuts (auto) Absolute Lymphs (auto) Total Counted Differential Comment Diff Path Review Reviewed Hypochromasia Anisocytosis Target Cells Sodium Potassium Chloride Carbon Dioxide Anion Gap BUN Creatinine Estim Creat Clear Calc Est GFR (MDRD) Af Amer Est GFR (MDRD) Non-Af BUN/Creatinine Ratio Glucose Hemoglobin A1c < 3.5 L Calcium Iron 9 L TIBC 173 L Iron Saturation 5.2 L Ferritin 10 Carcinoembryonic Ag TSH 2.11 Crossmatch 08/03/18 08/04/18 08/04/18 22:51 07:06 07:06 WBC 15.5 H 15.4 H RBC 3.69 L 3.72 L Hgb 9.1 L 9.0 L Hct 28.0 L 28.0 L MCV 75.9 L 75.3 L MCH 24.7 L 24.2 L MCHC 32.5 32.1 RDW 20.5 H 20.3 H RDW Differential 53.8 H 53.8 H Plt Count 502 H 488 H MPV 8.3 8.2 Immature Gran % (Auto) 0.800 0.800 Neut % (Auto) 80.7 H 77.9 H Lymph % (Auto) 11.2 L 12.8 L [place] % (Auto) 6.4 7.9 Eos % (Auto) 0.6 0.4 Baso % (Auto) 0.3 0.2 Absolute Neuts (auto) 12.5 H 12.0 H Absolute Lymphs (auto) 1.73 1.96 Total Counted Not Reportable Not Reportable Differential Comment SCANNED COMMENT Diff Path Review Hypochromasia 2+ Anisocytosis 3+ Target Cells 1+ Sodium Potassium Chloride Carbon Dioxide Anion Gap BUN Creatinine Estim Creat Clear Calc Est GFR (MDRD) Af Amer Est GFR (MDRD) Non-Af BUN/Creatinine Ratio Glucose Hemoglobin A1c Calcium Iron TIBC Iron Saturation Ferritin Carcinoembryonic Ag Pending TSH Crossmatch 08/04/18 07:06 WBC RBC Hgb Hct MCV MCH MCHC RDW RDW Differential Plt Count MPV Immature Gran % (Auto) Neut % (Auto) Lymph % (Auto) [place] % (Auto) Eos % (Auto) Baso % (Auto) Absolute Neuts (auto) Absolute Lymphs (auto) Total Counted Differential Comment Diff Path Review Hypochromasia Anisocytosis Target Cells Sodium 140 Potassium 4.1 Chloride 107 Carbon Dioxide 25.0 Anion Gap 8 BUN 13 Creatinine 0.41 L Estim Creat Clear Calc 106.46 Est GFR (MDRD) Af Amer 205 Est GFR (MDRD) Non-Af 169 BUN/Creatinine Ratio 31.9 H Glucose 107 H Hemoglobin A1c Calcium 8.0 L Iron TIBC Iron Saturation Ferritin Carcinoembryonic Ag TSH Crossmatch POC Glucose 08/04/18 08/04/18 08/03/18 05:36 00:46 18:14 POC Glucose 113 H 111 H 121 H Assessment/Plan This patient was seen in conjunction with Rajani HOLLAND. I have independently interviewed and examined the patient and reviewed pertinent history, examination findings, laboratory and plan of management. I have reviewed the note and agree with the documented findings with the few additional points. In brief, patient is admitted for acute blood loss anemia secondary to GI bleed most probably from large rectosigmoid mass and right lower lobe lung nodule with high suspicion of malignancy. There is also change in the stool characteristics and significant weight loss history, 25 pounds in last 6 months. Severe protein calorie malnutrition. She was seen by Dr. Calle Scheduled for colonoscopy tomorrow by Dr. Calle. On clear liquids diet. N.p.o. past midnight I have discussed my assessment with Rajani HOLLAND and orders have been reviewed. Code Visit Inpatient E&M: 35168 Subs Hosp L3
--- NOTE | 2018-08-04 13:57 | CASEMGMT ---
KIMBERLEE LEVI assessment: Face to Face with patient for initial transition planning/care coordination assessment. KIMBERLEE LEVI introduced self and role at [facility], pt voices understanding and consents to assessment at this time. Pt is sitting up in bed in no distress at this time. Pt is A/O x4 at this time and answers all questions appropriately. Care providers, pharmacy, and demographics verified at this time. PCP: Leann Specialists: Pt states currently has no specialists. [facility]erred [facility]acy[facility] Insurance: Multi plan PPO through [employer] benefits adminis Prescription Benefit: Pt is unsure if they have Rx coverage through insurance at this time. Living Will/HPOA: Pt states does not have LW/HPOA and states no interest in info at this time. LNOK: Hadley Diaz, Living Arrangements: Pt states lives with in a duplex with 2 steps into home and states no concerns at this time. Transportation: Pt states drives self and states no transportation concerns at this time. DME/HHC: Pt states does not currently have any DME and states no need for any at this time. Pt states no hx of HHC or SNF. Pt states that her and her just moved to this area and she is still in the process of establishing themselves. Pt states she is currently unemployed as she has not found a job yet. Pt states no further concerns/needs at this time. CM to follow for any further discharge planning/needs. Advised pt to ask for CM if any further questions/concerns/needs arise, voices understanding. Plan: [place] KIMBERLEE LEVI
[2018-08-04] MEDS: Electrolyte Solution/Peg's 4000 ML PO (15:08)
[2018-08-05] VITALS (19 sets, daily range): BP systolic 88–126; BP diastolic 54–70; PULSE 88–103; RESP 16–18; TEMP 36.6–37.4; O2SAT 97–100; BMI 16.9
--- NOTE | 2018-08-05 | IMM_PTH ---
PATIENT: HAILY TOBIAS LOC: [facility] U#:[id number] AGE/SX: 63/F ROOM: [facility] RE08/03/[address]: Dr. Enio Cotto MD : 1955 BED: 1 DIS: 08/05/2018 SPEC #: [id number] RECD: 08/06/18 12:59 STATUS: SOUT REQ #: [id number] JR: 08/05/18 00:[address]: Karri Calle DEPT: IMMUNOHISTOCHEMISTRY RECD BY: Frieda Mondragon ENTERED: 08/06/18 13:04 SP TYPE: IMMUNO OTHR DR: MD Dr. Karri Ybarra MD Dr. Ghasem E Ashelfah, MD Dr. John E Schinner, MD Dr. Prakash Chand, MD Tissues: Rectum, NOS Procedures: MSH2 (add) MLH-1 (add) MSH6 (add) Anti-PMS2 (add) SAINZ-2 (add) P53 (add) KI-67 (initial) Comments: @ Ordering doctor for KI67 edited from to @ by RGOPAUL at 08/06/18 1313 @ Ordering doctor for MSH2. edited from to @ by KATERYNA at 08/06/18 1313 @ Ordering doctor for MLH1. edited from to @ by RGOPAUL at 08/06/18 1313 @ Ordering doctor for MSH6. edited from to @ by KATERYNA at 08/06/18 1313 @ Ordering doctor for PMS2. edited from to @ by KATERYNA at 08/06/18 1313 @ Ordering doctor for SAINZ-2. edited from to DR.DPEABO Chavarria by KATERYNA at 08/06/181312 @ Ordering doctor for P53. edited from to DR.DPEABO Chavarria by KATERYNA at 08/06/181312 @ Submitting doctor edited from to DR.DPEABO Deon AVENDAÑO at 08/06/18 1313 PHYSICIAN & [place] [id number] SPECIMEN INFORMATION: Tissue Source: Rectum mass biopsy Clinical Info: GI bleed Specimen Number: [id number] CPT code: 95266, 91328 x6 METHODOLOGY: Deparaffinized sections of prefer/formalin-fixed tissue or PAP/DQ stained slides are incubated with monoclonal/polyclonal antibodies/oligonucleotide probes. Localization is made via biotin free immunoperoxidase method. Appropriate controls are performed and reacted as expected. Results on target cell population are indicated in the following table: RESULTS: ANTIBODY / CLONE RESULT Ki-67 (30-9) positive, high P53 (DO-7) positive, weak and focal MSH2 (25D12) positive MSH6 (44) positive MLH-1 (M1) positive PMS2 (CKG7174) positive SAINZ-2 (SP21) positive These tests were developed and their performance characteristics determined by [facility]. They may not have been cleared or approved by the U.S. Food and Drug Administration. The FDA has determined that such clearance or approval is not necessary. INTERPRETATION: Rectum mass, biopsy: Invasive adenocarcinoma. Result of Microsatellite Instability Study: Negative (no loss of mismatch protein; no microsatellite instability detected). /SJ 08/06/18 .
--- NOTE | 2018-08-05 | COLBX_PTH ---
PATIENT: HAILY TOBIAS LOC: [facility] U#:[id number] AGE/SX: 63/F ROOM: [facility] RE08/03/[address]: Dr. Enio Cotto MD : 1955 BED: 1 DIS: 08/05/2018 SPEC #: [id number] RECD: 08/05/18 13:19 STATUS: GERARDO REQ #: [id number] JR: 08/05/18 00:[address]: Karri Calle DEPT: SURGICAL PATHOLOGY RECD BY: Neto Byrd ENTERED: 08/05/18 13:19 SP TYPE: COLON BX OTHR DR: MD Dr. Karri Ybarra MD Dr. Ghasem E Ashelfah, MD Dr. John E Schinner, MD Dr. Prakash Chand, MD Tissues: Rectum, NOS Procedures: Surgery Specimen Level IV Comments: @ Ordering doctor for SUIV edited from to @ by KATERYNA at 08/05/18 1415 @ Submitting doctor edited from to @ by KATERYNA at 08/05/18 1415 HEADER OPERATION: Colonoscopy (MAC) PRE-OP DIAGNOSIS: GI bleed TISSUE SUBMITTED: Biopsy mass rectum MICROSCOPIC DIAGNOSIS Rectum mass, biopsy: Invasive well differentiated adenocarcinoma with extensive ulceration. See comment. SILVIO:kristal 08/06/18 COMMENT Immunohistochemistry for mismatch repair of protein ([id number]) will be performed and the results will be reported separately. MICROSCOPIC DESCRIPTION Slides are reviewed. GROSS DESCRIPTION Received in fixative is one container labeled with the patient's name and designated biopsy mass rectum. The specimen consists of a piece of jane-pink polypoid tissue measuring 0.9 x 0.7 x 0.7 cm. The polyp is bisected. Also present in the container are multiple fragments of jane soft tissue measuring in aggregate 1 x 0.2 x 0.1 cm. The entire specimen is submitted in one cassette. / SILVIO:kristal 08/05/18 TC:0 CPT: 82935 ADDENDUM ADDENDUM ADDENDUM ADDENDUM ADDENDUM ADDENDUM ADDENDUM ADDENDUM ADDENDUM ADDENDUM 08/24/2018 09:01 ADDENDUM 08/24/2018 09:01 ADDENDUM 08/24/2018 09:01 ADDENDUM 08/24/2018 09:01 ADDENDUM 08/24/2018 09:01 This addendum is added to incorporate an outside pathology consultation report. The case was examined at [facility] (#[id number]) and the following diagnosis was rendered. Rectum mass biopsy: Fragments of invasive adenocarcinoma with at least submucosal invasion. Please see complete above mentioned consultation report in EMR
[2018-08-05 06:58] LABS: Anion Gap 8 (5-15); BUN 6 mg/dL (7-18); BUN/Creat Ratio 14.6 RATIO (10-20); Chloride 109 mmol/L (98-107); Creatinine, Serum 0.41 mg/dL (0.55-1.02); EST Glomerular Filtration Rate 167 mL/min (>60); Est Glom Filt Rate - Afr Amer 202 mL/min (>60); Estimated Creatinine Clearance 106.46 ml/min; Glucose 105 mg/dL (74-106); Potassium 4.3 mmol/L (3.5-5.1); Sodium Level 140 mmol/L (136-145)
[2018-08-05 08:44] LABS: Absolute Lymphocyte Count 1.22 X10^3/ul (0.83-4.51); Absolute Neutrophil Count 12.6 X10^3/uL (2.0-7.7); Basophil# 0.03 X10^3/uL; Basophil% 0.2 % (0-1); Eosinophil# 0.07 X10^3/uL; Eosinophils% 0.5 % (0-5); Hemoglobin 9.6 g/dl (12.0-15.0); Lymphocyte # 1.22 X10^3/ul (4.0); Lymphocyte % 8.2 % (19-41); Mean Corpuscular Hgb 23.9 pg (27.0-32.0); Mean Corpuscular Volume 77.1 fL (81-99); Mean Platelet Vol. 8.1 fl (6.2-12.0); Monocyte# 0.84 X10^3/uL; Monocyte% 5.7 % (0-10); Neutrophil # 12.63 X10^3/uL (2.7-7.7); Neutrophil % 85.1 % (47-70); Platelet Count 457 K/mm3 (150-450); RBC Distribution Width CV 21.7 % (11.6-14.6); Red Blood Count 4.02 M/mm3 (4.2-5.4); White Blood Count 14.8 K/mm3 (4.4-11.0)
[2018-08-05 08:46] LABS: Differential Indicated SCAN CRITERIA MET; POSITIVE COUNT NO; POSITIVE DIFFERENTIAL NO; POSITIVE MORPHOLOGY YES
--- NOTE | 2018-08-05 09:03 | NURSING ---
CALLED REPORT TO PEARL IN [place].
[2018-08-05 09:10] LABS: Anisocytosis 2+; Differential Comment SCANNED; Macrocytosis 1+; Microcytosis 1+
--- NOTE | 2018-08-05 10:36 | OP.ENDO_ITS ---
Patient Name: Lauren Diaz Procedure Date: 08/05/2018 9:54 AM Date of : 1955 Age: 63 Procedure: Colonoscopy Indications: Abnormal CT of the GI tract, Rectal mass, Weight loss Providers: Karri Calle MD Medicines: See the Anesthesia note for documentation of the administered medications Patient Profile: Last Colonoscopy: none. The patient's first colonoscopy is today. Complications: No immediate complications. Procedure: Pre-Anesthesia Assessment: - Prior to the procedure, a History and Physical was performed, and patient medications and allergies were reviewed. The patient's tolerance of previous anesthesia was also reviewed. The risks and benefits of the procedure and the sedation options and risks were discussed with the patient. All questions were answered, and informed consent was obtained. Prior Anticoagulants: The patient has taken no previous anticoagulant or antiplatelet agents. ASA Grade Assessment: III - A patient with severe systemic disease. After reviewing the risks and benefits, the patient was deemed in satisfactory condition to undergo the procedure. After I obtained informed consent, the scope was passed under direct vision. Throughout the procedure, the patient's blood pressure, pulse, and oxygen saturations were monitored continuously. The colonoscope was introduced through the anus with the intention of advancing to the cecum. The scope was advanced to the rectum before the procedure was aborted. Medications were given. The colonoscopy was aborted due to the extreme difficulty of the procedure. The patient tolerated the procedure well. The quality of the bowel preparation was poor. Scope In: 10:19:21 AM Scope Out: 10:24:57 AM Total Procedure Duration Time 0 hours 5 minutes 36 seconds Findings: A fungating partially obstructing large mass was found in the rectum. The mass was partially circumferential (involving two-thirds of the lumen circumference). The mass measured nine cm in length. Oozing was present. This was biopsied with a cold forceps for histology. Impression: - The procedure was aborted due to the extreme difficulty of the procedure. - Preparation of the colon was poor. - Likely malignant partially obstructing tumor in the rectum. Biopsied. - Malignant-appearing tumor in the colon. Biopsied. - CT scan shows a 9cm mass in rectum. This is nearly obstuction and she will need to be transfered to larger center for possible rectal stent placement. She is at high risk of complete obstruction. Recommendation: - Transfer patient to another hospital. - Full liquid diet today. - Continue present medications. - Await pathology results. - Refer to a colo-rectal surgeon today. - Repeat colonoscopy (date not yet determined) because the examination was incomplete. Procedure Code(s): --- Professional --- 43266, 52, Colonoscopy, flexible; with biopsy, single or multiple Diagnosis Code(s): --- Professional --- Z53.8, Procedure and treatment not carried out for other reasons D49.0, Neoplasm of unspecified behavior of digestive system K56.690, Other partial intestinal obstruction K62.89, Other specified diseases of anus and rectum R63.4, Abnormal weight loss R93.3, Abnormal findings on diagnostic imaging of other parts of digestive tract CPT copyright 2017 [employer]. All rights reserved. The codes documented in this report are preliminary and upon meat stock clerk review may be revised to meet current compliance requirements. MD Karri Weiss MD 08/05/2018 10:35:43 AM This report has been signed electronically. Number of Addenda: 0 Note Initiated On: 08/05/2018 9:54 AM
--- NOTE | 2018-08-05 10:59 | CASEMGMT ---
According to the International benefits admin website, the following are in-network tertiary facilities: [facility], [facility], [facility], [facility], [facility], [facility], and . Adolfo MOHAN CM
--- NOTE | 2018-08-05 11:50 | PN_ITS ---
<Rajani Brito - Last Filed: 08/05/18 11:50> Subjective: Patient seen and examined. Denies further blood in stool. Plan for upper and lower scope today. Denies current complaints. - Physical Exam General: Alert, Oriented x3, Cooperative HEENT: Atraumatic, PERRLA, EOMI, Normocephalic Neck: Supple, No JVD, Negative Carotid Bruits Lungs: Clear to auscultation, Normal air movement Cardiovascular: Regular rate, Regular Rhythm, Normal S1, Normal S2, Murmur Abdomen: Bowel Sounds Present, Soft, Non Tender Extremities: No clubbing, No cyanosis, No edema, Capillary Refill Less than 3 Seconds Skin: No rashes, No breakdown Musculoskeletal: No Tenderness to Palpation of Joints or Extremities Neurological: Cranial nerves II-XII grossly intact, Neuro grossly intact Psych/Mental Status: Normal Affect, Appropriate Vital Signs Temp Pulse Resp BP Pulse Ox 98.6 F 94 18 117/63 98 08/05/18 11:15 08/05/18 11:15 08/05/18 11:15 08/05/18 11:15 08/05/18 11:15 Oxygen Delivery Method Room Air Weight: 103 lb 2.821 oz Body Mass Index (BMI) 16.9 Intake and Output for Last 24 Hours 08/03/18 08/04/18 08/05/18 23:59 23:59 23:59 Intake Total 3025 / 3025 5437 / 5437 3245 / 3245 Output Total 100 / 100 Balance 3025 / 3025 5437 / 5437 3145 / 3145 Microbiology Past 72 Hours 08/03/18 11:50 Stool Occult Blood (BILL) - Final Stool Occult Blood Positive Laboratory Tests Past 24 Hrs 08/03/18 08/04/18 08/05/18 12:00 07:06 06:28 WBC RBC Hgb Hct MCV MCH MCHC RDW RDW Differential Plt Count MPV Immature Gran % (Auto) Neut % (Auto) Lymph % (Auto) [place] % (Auto) Eos % (Auto) Baso % (Auto) Absolute Neuts (auto) Absolute Lymphs (auto) Total Counted Not Reportable Differential Comment Diff Path Review Reviewed Anisocytosis Microcytosis Macrocytosis Sodium 140 Potassium 4.3 Chloride 109 H Carbon Dioxide 23.0 Anion Gap 8 BUN 6 L Creatinine 0.41 L Estim Creat Clear Calc 106.46 Est GFR (MDRD) Af Amer 202 Est GFR (MDRD) Non-Af 167 BUN/Creatinine Ratio 14.6 Glucose 105 Calcium 8.0 L 08/05/18 06:28 WBC 14.8 H RBC 4.02 L Hgb 9.6 L Hct 31.0 L MCV 77.1 L MCH 23.9 L MCHC 31.0 L RDW 21.7 H RDW Differential 61.0 H Plt Count 457 H MPV 8.1 Immature Gran % (Auto) 0.300 Neut % (Auto) 85.1 H Lymph % (Auto) 8.2 L [place] % (Auto) 5.7 Eos % (Auto) 0.5 Baso % (Auto) 0.2 Absolute Neuts (auto) 12.6 H Absolute Lymphs (auto) 1.22 Total Counted Not Reportable Differential Comment SCANNED Diff Path Review Anisocytosis 2+ Microcytosis 1+ Macrocytosis 1+ Sodium Potassium Chloride Carbon Dioxide Anion Gap BUN Creatinine Estim Creat Clear Calc Est GFR (MDRD) Af Amer Est GFR (MDRD) Non-Af BUN/Creatinine Ratio Glucose Calcium Medical Necessity - Tobacco Use Smoking Status: Never smoker Assessment/Plan All Active Problems Unintentional weight loss (Acute) Lung nodule (Acute) Rectosigmoid mass (Acute) GI bleed (Acute) Acute blood loss anemia (Acute) 1. Acute blood loss anemia secondary to GI bleed-CT of abdomen and pelvis showed large rectosigmoid mass as well as right lower lobe lung nodule. Stool positive for occult blood. Hemoglobin 4.3 on admission. Status post 4 units PRBC. Trend CBC. Patient underwent colonoscopy today with Dr. Calle. A fungating partially obstructing large mass was found in the rectum. Oozing was present. Sent for biopsy. Procedure aborted due to extreme difficulty of the procedure. Suspected malignant tumor. Surgery recommending transfer to tertiary facility for rectal stent placement. 2. Rectosigmoid mass, suspicious for colon cancer-no prior colonoscopy. Colonoscopy as noted above with plan for transfer. 3. Right lower lobe lung nodule-as noted on CT of abdomen. Unclear etiology. Pulmonary consulted. Suspicious for metastatic colon cancer. Pulmonary recommending PET scan. 4. Leukocytosis-suspect reactive secondary to #1. Trend CBC. 5. Hypokalemia/hyponatremia-resolved. Trend BMP. DVT prophylaxis-SCDs. This patient was seen by INEZ Lance under the supervision of Dr. Cotto. <YadielEnio - Last Filed: 08/05/18 17:05> Subjective: Patient said she could not finish GoLYTELY as this was giving her nausea and diarrhea. Patient had colonoscopy in the morning. A fungating near obstructing large mass found in the rectum. Mass was partially circumferential involving two thirds of the lumen circumference about 9 cm in length. Oozing was present. - Physical Exam General: Alert, Oriented x3, Cooperative HEENT: Atraumatic, PERRLA, EOMI, Normocephalic Neck: Supple, No JVD, Negative Carotid Bruits Lungs: Clear to auscultation, Normal air movement, No rhonchi, No wheeze Cardiovascular: Regular rate, Regular Rhythm, Normal S1, Normal S2, No murmurs Abdomen: Bowel Sounds Present, Soft, Non Tender, Non-Distended Extremities: No edema, Capillary Refill Less than 3 Seconds Skin: No rashes, No breakdown Musculoskeletal: No Tenderness to Palpation of Joints or Extremities, Arthritic Changes, Muscle Wasting Neurological: Cranial nerves II-XII grossly intact Psych/Mental Status: Normal Affect, Appropriate Vital Signs Temp Pulse Resp BP Pulse Ox 98.6 F 101 H 18 117/63 98 08/05/18 11:15 08/05/18 15:06 08/05/18 11:15 08/05/18 11:15 08/05/18 11:15 Oxygen Delivery Method Room Air Weight: 103 lb 2.821 oz Body Mass Index (BMI) 16.9 Intake and Output for Last 24 Hours 08/03/18 08/04/18 08/05/18 23:59 23:59 23:59 Intake Total 3025 / 3025 5437 / 5437 3245 / 3245 Output Total 100 / 100 Balance 3025 / 3025 5437 / 5437 3145 / 3145 Microbiology Past 72 Hours 08/03/18 11:50 Stool Occult Blood (BILL) - Final Stool Occult Blood Positive Laboratory Tests Past 24 Hrs 08/04/18 08/05/18 08/05/18 07:06 06:28 06:28 WBC 14.8 H RBC 4.02 L Hgb 9.6 L Hct 31.0 L MCV 77.1 L MCH 23.9 L MCHC 31.0 L RDW 21.7 H RDW Differential 61.0 H Plt Count 457 H MPV 8.1 Immature Gran % (Auto) 0.300 Neut % (Auto) 85.1 H Lymph % (Auto) 8.2 L [place] % (Auto) 5.7 Eos % (Auto) 0.5 Baso % (Auto) 0.2 Absolute Neuts (auto) 12.6 H Absolute Lymphs (auto) 1.22 Total Counted Not Reportable Differential Comment SCANNED Anisocytosis 2+ Microcytosis 1+ Macrocytosis 1+ Sodium 140 Potassium 4.3 Chloride 109 H Carbon Dioxide 23.0 Anion Gap 8 BUN 6 L Creatinine 0.41 L Estim Creat Clear Calc 106.46 Est GFR (MDRD) Af Amer 202 Est GFR (MDRD) Non-Af 167 BUN/Creatinine Ratio 14.6 Glucose 105 Calcium 8.0 L Carcinoembryonic Ag 80.8 H Assessment/Plan This patient was seen in conjunction with Rajani HOLLAND. I have independently interviewed and examined the patient and reviewed pertinent history, examination findings, laboratory and plan of management. I have reviewed the note and agree with the documented findings with the few additional points. In brief, patient is admitted for acute blood loss anemia secondary to GI bleed most probably from large rectosigmoid mass and right lower lobe lung nodule with high suspicion of malignancy. There is also change in the stool characteristics and significant weight loss history, 25 pounds in last 6 months. Severe protein calorie malnutrition. Patient had colonoscopy today, 08/05. Colonoscopy revealed A fungating near obstructing large mass found in the rectum. Mass was partially circumferential involving two thirds of the lumen circumference about 9 cm in length. Oozing was present. Dr. Calle called me and informed done masses near obstructing and she can have bowel obstruction anytime near future. She needs to be assessed in tertiary care center for stenting the obstruction site in the rectum. Transfer process is in progress to [facility]. I have discussed my assessment with Rajani HOLLAND and orders have been reviewed. Code Visit Inpatient E&M: 29940 Subs Hosp L3
[2018-08-05 12:32] LABS: Carcinoembryonic Antigen 80.8 ng/mL (0.0-4.7)
--- NOTE | 2018-08-05 13:09 | NURSING ---
student nurse charting reviewed by this rn.
--- NOTE | 2018-08-05 15:04 | DS.PCM_ITS ---
<Rajani Brito - Last Filed: 08/05/18 15:14> Discharge Date and Diagnosis Date of Admission: 08/03/18 Date of Discharge: 08/05/18 - Primary Discharge Diagnosis Active and Suspected Problems 1. Acute blood loss anemia secondary to GI bleed 2. Rectosigmoid mass, suspicious for colon cancer 3. Right lower lobe lung nodule, suspicious for metastasis 4. Leukocytosis-suspect reactive secondary to #1. 5. Hypokalemia/hyponatremia-resolved. Hospital Course and Treatment Imaging Results: Diagnostic Data Abdomen/Pelvis CT 08/03/18 11:32 IMPRESSION: Large mass in the rectosigmoid junction with a large amount of fecal material proximal to this. A neoplastic process should BE ruled out. Lobulated nodular density in the lateral posterior aspect of the right lower lobe. Electronically Signed: Shukri Lacy MD at 13:45 EDT Tel [phone], Service support , Chest CT 08/04/18 13:00 IMPRESSION: Solitary 1.8 cm x 1.1 cm lobulated nodule in the peripheral lateral aspect of the right lower lobe. Correlation with a PET scan is recommended. Electronically Signed: Shukri Lacy MD at 12:26 EDT Tel [phone], Service support , Dr. Calle- General surgery Operations: None Procedures: Colonoscopy Summary of Care Provided: The patient is a 63 year old F admitted 08/03/18 due to rectal bleeding. 1. Acute blood loss anemia secondary to GI bleed-CT of abdomen and pelvis showed large rectosigmoid mass as well as right lower lobe lung nodule. Stool positive for occult blood. Hemoglobin 4.3 on admission. Status post 4 units PRBC. Patient underwent colonoscopy today with Dr. Calle. A fungating partially obstructing large mass was found in the rectum. Oozing was present. Sent for biopsy. Procedure aborted due to extreme difficulty of the procedure. CEA elevated, 80.8. Suspected malignant tumor. Surgery recommending transfer to tertiary facility for rectal stent placement. Patient will be transferred to [facility] for colo-rectal surgery consult. 2. Rectosigmoid mass, suspicious for colon cancer-no prior colonoscopy. Colonoscopy as noted above with plan for transfer. 3. Right lower lobe lung nodule-as noted on CT of abdomen. Unclear etiology. P ulmonary consulted. Suspicious for metastatic colon cancer. Pulmonary recommending PET scan. 4. Leukocytosis-suspect reactive secondary to #1. 5. Hypokalemia/hyponatremia-resolved. General: Alert, Oriented x3, Cooperative HEENT: Atraumatic, PERRLA, EOMI, Normocephalic Neck: Supple, No JVD, Negative Carotid Bruits Lungs: Clear to auscultation, Normal air movement Cardiovascular: Regular rate, Regular Rhythm, Normal S1, Normal S2, Murmur Abdomen: Bowel Sounds Present, Soft, Non Tender Extremities: No clubbing, No cyanosis, No edema, Capillary Refill Less than 3 Seconds Skin: No rashes, No breakdown Musculoskeletal: No Tenderness to Palpation of Joints or Extremities Neurological: Cranial nerves II-XII grossly intact, Neuro grossly intact Psych/Mental Status: Normal Affect, Appropriate Patient seen and examined prior to discharge. Physical assessment as noted above. This patient was seen by INEZ Lance under the supervision of Dr. Cotto. - Physical Exam Vital Signs Temp Pulse Resp BP Pulse Ox 98.6 F 94 18 117/63 98 08/05/18 11:15 08/05/18 11:15 08/05/18 11:15 08/05/18 11:15 08/05/18 11:15 Oxygen Delivery Method Room Air Weight: 103 lb 2.821 oz Body Mass Index (BMI) 16.9 Intake and Output for Last 24 Hours 08/03/18 08/04/18 08/05/18 23:59 23:59 23:59 Intake Total 3025 / 3025 5437 / 5437 3245 / 3245 Output Total 100 / 100 Balance 3025 / 3025 5437 / 5437 3145 / 3145 Microbiology Past 72 Hours 08/03/18 11:50 Stool Occult Blood (BILL) - Final Stool Occult Blood Positive Laboratory Tests Past 24 Hrs 08/04/18 08/05/18 08/05/18 07:06 06:28 06:28 WBC 14.8 H RBC 4.02 L Hgb 9.6 L Hct 31.0 L MCV 77.1 L MCH 23.9 L MCHC 31.0 L RDW 21.7 H RDW Differential 61.0 H Plt Count 457 H MPV 8.1 Immature Gran % (Auto) 0.300 Neut % (Auto) 85.1 H Lymph % (Auto) 8.2 L Allen % (Auto) 5.7 Eos % (Auto) 0.5 Baso % (Auto) 0.2 Absolute Neuts (auto) 12.6 H Absolute Lymphs (auto) 1.22 Total Counted Not Reportable Differential Comment SCANNED Anisocytosis 2+ Microcytosis 1+ Macrocytosis 1+ Sodium 140 Potassium 4.3 Chloride 109 H Carbon Dioxide 23.0 Anion Gap 8 BUN 6 L Creatinine 0.41 L Estim Creat Clear Calc 106.46 Est GFR (MDRD) Af Amer 202 Est GFR (MDRD) Non-Af 167 BUN/Creatinine Ratio 14.6 Glucose 105 Calcium 8.0 L Carcinoembryonic Ag 80.8 H Home Medications: Medications to take at Discharge Multivit-Min/Iron/Folic/Lutein [Centrum Silver Women Tablet] 1 tab PO DAILY 08/03/18 Primary Care Physician: Care Physician,No Primary [NON-STAFF] - Disposition: Acute care Hospital Minutes spent on discharge:: 35 Patient Condition:: Stable Medical Necessity - Tobacco Use Smoking Status: Never smoker Meaningful Use Info Meaningful Use Diagnoses (Choose all that apply): None applicable <Enio Cotto - Last Filed: 08/06/18 07:45> Hospital Course and Treatment Summary of Care Provided: This patient was seen in conjunction with SEMIAUTOMATIC TAPER OPERATOR, Rajani. I have independently interviewed and examined the patient and reviewed pertinent history, examination findings, laboratory and plan of management. I have reviewed the note and agree with the documented findings with the few additional points. In brief, patient is admitted for acute blood loss anemia secondary to GI bleed most probably from large rectosigmoid mass and right lower lobe lung nodule with high suspicion of malignancy. There is also change in the stool characteristics and significant weight loss history, 25 pounds in last 6 months. Severe protein calorie malnutrition. Patient had colonoscopy today, 08/05. Colonoscopy revealed A fungating near obstructing large mass found in the rectum. Mass was partially circumferential involving two thirds of the lumen circumference about 9 cm in length. Oozing was present. Dr. Calle called me and informed done masses near obstructing and she can have bowel obstruction anytime near future. She needs to be assessed in tertiary care center for stenting the obstruction site in the rectum. The patient was transferred to tertiary care center, [facility] for further evaluation and management with colorectal surgery team I have discussed my assessment with SEMIAUTOMATIC TAPER OPERATOR, Rajani and orders have been reviewed. [] - Physical Exam General: Alert, Oriented x3, Cooperative, - - Thin and low body weight HEENT: Atraumatic, PERRLA, EOMI, Normocephalic Neck: Supple, No JVD, Negative Carotid Bruits Lungs: Clear to auscultation, Normal air movement Cardiovascular: Regular rate, Regular Rhythm, Normal S1, Normal S2, No murmurs Abdomen: Bowel Sounds Present, Soft, Non Tender, Non-Distended Extremities: No edema, Capillary Refill Less than 3 Seconds Skin: No rashes, No breakdown Musculoskeletal: No Tenderness to Palpation of Joints or Extremities, Arthritic Changes, Muscle Wasting Neurological: Cranial nerves II-XII grossly intact Psych/Mental Status: Normal Affect, Appropriate Vital Signs Temp Pulse Resp BP Pulse Ox 98.6 F 101 H 18 117/63 98 08/05/18 11:15 08/05/18 15:06 08/05/18 11:15 08/05/18 11:15 08/05/18 11:15 Oxygen Delivery Method Room Air Weight: 103 lb 2.821 oz Body Mass Index (BMI) 16.9 Intake and Output for Last 24 Hours 08/03/18 08/04/18 08/05/18 23:59 23:59 23:59 Intake Total 3025 / 3025 5437 / 5437 3245 / 3245 Output Total 100 / 100 Balance 3025 / 3025 5437 / 5437 3145 / 3145 Microbiology Past 72 Hours 08/03/18 11:50 Stool Occult Blood (BILL) - Final Stool Occult Blood Positive Laboratory Tests Past 24 Hrs 08/04/18 08/05/18 08/05/18 07:06 06:28 06:28 WBC 14.8 H RBC 4.02 L Hgb 9.6 L Hct 31.0 L MCV 77.1 L MCH 23.9 L MCHC 31.0 L RDW 21.7 H RDW Differential 61.0 H Plt Count 457 H MPV 8.1 Immature Gran % (Auto) 0.300 Neut % (Auto) 85.1 H Lymph % (Auto) 8.2 L Allen % (Auto) 5.7 Eos % (Auto) 0.5 Baso % (Auto) 0.2 Absolute Neuts (auto) 12.6 H Absolute Lymphs (auto) 1.22 Total Counted Not Reportable Differential Comment SCANNED Anisocytosis 2+ Microcytosis 1+ Macrocytosis 1+ Sodium 140 Potassium 4.3 Chloride 109 H Carbon Dioxide 23.0 Anion Gap 8 BUN 6 L Creatinine 0.41 L Estim Creat Clear Calc 106.46 Est GFR (MDRD) Af Amer 202 Est GFR (MDRD) Non-Af 167 BUN/Creatinine Ratio 14.6 Glucose 105 Calcium 8.0 L Carcinoembryonic Ag 80.8 H Meaningful Use Info Meaningful Use Diagnoses (Choose all that apply): None applicable Code Visit Inpatient E&M: 40897 Disch Hosp
--- NOTE | 2018-08-05 19:10 | PCM.DC.SUM ---
<Rajani Brito - Last Filed: 08/05/18 15:14> Discharge Date and Diagnosis Date of Admission: 08/03/18 Date of Discharge: 08/05/18 - Primary Discharge Diagnosis Active and Suspected Problems 1. Acute blood loss anemia secondary to GI bleed 2. Rectosigmoid mass, suspicious for colon cancer 3. Right lower lobe lung nodule, suspicious for metastasis 4. Leukocytosis-suspect reactive secondary to #1. 5. Hypokalemia/hyponatremia-resolved. Hospital Course and Treatment Imaging Results: Diagnostic Data Abdomen/Pelvis CT 08/03/18 11:32 IMPRESSION: Large mass in the rectosigmoid junction with a large amount of fecal material proximal to this. A neoplastic process should BE ruled out. Lobulated nodular density in the lateral posterior aspect of the right lower lobe. Electronically Signed: Shukri Lacy MD at 13:45 EDT Tel [phone], Service support , Chest CT 08/04/18 13:00 IMPRESSION: Solitary 1.8 cm x 1.1 cm lobulated nodule in the peripheral lateral aspect of the right lower lobe. Correlation with a PET scan is recommended. Electronically Signed: Shukri Lacy MD at 12:26 EDT Tel [phone], Service support , Dr. Calle- General surgery Operations: None Procedures: Colonoscopy Summary of Care Provided: The patient is a 63 year old F admitted 08/03/18 due to rectal bleeding. 1. Acute blood loss anemia secondary to GI bleed-CT of abdomen and pelvis showed large rectosigmoid mass as well as right lower lobe lung nodule. Stool positive for occult blood. Hemoglobin 4.3 on admission. Status post 4 units PRBC. Patient underwent colonoscopy today with Dr. Calle. A fungating partially obstructing large mass was found in the rectum. Oozing was present. Sent for biopsy. Procedure aborted due to extreme difficulty of the procedure. CEA elevated, 80.8. Suspected malignant tumor. Surgery recommending transfer to tertiary facility for rectal stent placement. Patient will be transferred to [facility] for colo-rectal surgery consult. 2. Rectosigmoid mass, suspicious for colon cancer-no prior colonoscopy. Colonoscopy as noted above with plan for transfer. 3. Right lower lobe lung nodule-as noted on CT of abdomen. Unclear etiology. Pulmonary consulted. Suspicious for metastatic colon cancer. Pulmonary recommending PET scan. 4. Leukocytosis-suspect reactive secondary to #1. 5. Hypokalemia/hyponatremia-resolved. General: Alert, Oriented x3, Cooperative HEENT: Atraumatic, PERRLA, EOMI, Normocephalic Neck: Supple, No JVD, Negative Carotid Bruits Lungs: Clear to auscultation, Normal air movement Cardiovascular: Regular rate, Regular Rhythm, Normal S1, Normal S2, Murmur Abdomen: Bowel Sounds Present, Soft, Non Tender Extremities: No clubbing, No cyanosis, No edema, Capillary Refill Less than 3 Seconds Skin: No rashes, No breakdown Musculoskeletal: No Tenderness to Palpation of Joints or Extremities Neurological: Cranial nerves II-XII grossly intact, Neuro grossly intact Psych/Mental Status: Normal Affect, Appropriate Patient seen and examined prior to discharge. Physical assessment as noted above. This patient was seen by INEZ Lance under the supervision of Dr. Cotto. - Physical Exam Vital Signs Temp Pulse Resp BP Pulse Ox 98.6 F 94 18 117/63 98 08/05/18 11:15 08/05/18 11:15 08/05/18 11:15 08/05/18 11:15 08/05/18 11:15 Oxygen Delivery Method Room Air Weight: 103 lb 2.821 oz Body Mass Index (BMI) 16.9 Intake and Output for Last 24 Hours 08/03/18 08/04/18 08/05/18 23:59 23:59 23:59 Intake Total 3025 / 3025 5437 / 5437 3245 / 3245 Output Total 100 / 100 Balance 3025 / 3025 5437 / 5437 3145 / 3145 Microbiology Past 72 Hours 08/03/18 11:50 Stool Occult Blood (BILL) - Final Stool Occult Blood Positive Laboratory Tests Past 24 Hrs 08/04/18 08/05/18 08/05/18 07:06 06:28 06:28 WBC 14.8 H RBC 4.02 L Hgb 9.6 L Hct 31.0 L MCV 77.1 L MCH 23.9 L MCHC 31.0 L RDW 21.7 H RDW Differential 61.0 H Plt Count 457 H MPV 8.1 Immature Gran % (Auto) 0.300 Neut % (Auto) 85.1 H Lymph % (Auto) 8.2 L Chase % (Auto) 5.7 Eos % (Auto) 0.5 Baso % (Auto) 0.2 Absolute Neuts (auto) 12.6 H Absolute Lymphs (auto) 1.22 Total Counted Not Reportable Differential Comment SCANNED Anisocytosis 2+ Microcytosis 1+ Macrocytosis 1+ Sodium 140 Potassium 4.3 Chloride 109 H Carbon Dioxide 23.0 Anion Gap 8 BUN 6 L Creatinine 0.41 L Estim Creat Clear Calc 106.46 Est GFR (MDRD) Af Amer 202 Est GFR (MDRD) Non-Af 167 BUN/Creatinine Ratio 14.6 Glucose 105 Calcium 8.0 L Carcinoembryonic Ag 80.8 H Home Medications: Medications to take at Discharge Multivit-Min/Iron/Folic/Lutein [Centrum Silver Women Tablet] 1 tab PO DAILY 08/03/18 Primary Care Physician: Care Physician,No Primary [NON-STAFF] - Disposition: Acute care Hospital Minutes spent on discharge:: 35 Patient Condition:: Stable Medical Necessity - Tobacco Use Smoking Status: Never smoker Meaningful Use Info Meaningful Use Diagnoses (Choose all that apply): None applicable <Enio Cotto - Last Filed: 08/06/18 07:45> Hospital Course and Treatment Summary of Care Provided: This patient was seen in conjunction with MACHINE STAPLER, Rajani. I have independently interviewed and examined the patient and reviewed pertinent history, examination findings, laboratory and plan of management. I have reviewed the note and agree with the documented findings with the few additional points. In brief, patient is admitted for acute blood loss anemia secondary to GI bleed most probably from large rectosigmoid mass and right lower lobe lung nodule with high suspicion of malignancy. There is also change in the stool characteristics and significant weight loss history, 25 pounds in last 6 months. Severe protein calorie malnutrition. Patient had colonoscopy today, 08/05. Colonoscopy revealed A fungating near obstructing large mass found in the rectum. Mass was partially circumferential involving two thirds of the lumen circumference about 9 cm in length. Oozing was present. Dr. Calle called me and informed done masses near obstructing and she can have bowel obstruction anytime near future. She needs to be assessed in tertiary care center for stenting the obstruction site in the rectum. The patient was transferred to tertiary care center, [facility] for further evaluation and management with colorectal surgery team I have discussed my assessment with MACHINE STAPLER, Rajani and orders have been reviewed. [] - Physical Exam General: Alert, Oriented x3, Cooperative, - - Thin and low body weight HEENT: Atraumatic, PERRLA, EOMI, Normocephalic Neck: Supple, No JVD, Negative Carotid Bruits Lungs: Clear to auscultation, Normal air movement Cardiovascular: Regular rate, Regular Rhythm, Normal S1, Normal S2, No murmurs Abdomen: Bowel Sounds Present, Soft, Non Tender, Non-Distended Extremities: No edema, Capillary Refill Less than 3 Seconds Skin: No rashes, No breakdown Musculoskeletal: No Tenderness to Palpation of Joints or Extremities, Arthritic Changes, Muscle Wasting Neurological: Cranial nerves II-XII grossly intact Psych/Mental Status: Normal Affect, Appropriate Vital Signs Temp Pulse Resp BP Pulse Ox 98.6 F 101 H 18 117/63 98 08/05/18 11:15 08/05/18 15:06 08/05/18 11:15 08/05/18 11:15 08/05/18 11:15 Oxygen Delivery Method Room Air Weight: 103 lb 2.821 oz Body Mass Index (BMI) 16.9 Intake and Output for Last 24 Hours 08/03/18 08/04/18 08/05/18 23:59 23:59 23:59 Intake Total 3025 / 3025 5437 / 5437 3245 / 3245 Output Total 100 / 100 Balance 3025 / 3025 5437 / 5437 3145 / 3145 Microbiology Past 72 Hours 08/03/18 11:50 Stool Occult Blood (BILL) - Final Stool Occult Blood Positive Laboratory Tests Past 24 Hrs 08/04/18 08/05/18 08/05/18 07:06 06:28 06:28 WBC 14.8 H RBC 4.02 L Hgb 9.6 L Hct 31.0 L MCV 77.1 L MCH 23.9 L MCHC 31.0 L RDW 21.7 H RDW Differential 61.0 H Plt Count 457 H MPV 8.1 Immature Gran % (Auto) 0.300 Neut % (Auto) 85.1 H Lymph % (Auto) 8.2 L Chase % (Auto) 5.7 Eos % (Auto) 0.5 Baso % (Auto) 0.2 Absolute Neuts (auto) 12.6 H Absolute Lymphs (auto) 1.22 Total Counted Not Reportable Differential Comment SCANNED Anisocytosis 2+ Microcytosis 1+ Macrocytosis 1+ Sodium 140 Potassium 4.3 Chloride 109 H Carbon Dioxide 23.0 Anion Gap 8 BUN 6 L Creatinine 0.41 L Estim Creat Clear Calc 106.46 Est GFR (MDRD) Af Amer 202 Est GFR (MDRD) Non-Af 167 BUN/Creatinine Ratio 14.6 Glucose 105 Calcium 8.0 L Carcinoembryonic Ag 80.8 H Meaningful Use Info Meaningful Use Diagnoses (Choose all that apply): None applicable Code Visit Inpatient E&M: 25569 Disch Hosp
--- NOTE | 2018-08-05 19:46 | NURSING ---
Caitlin, transfer specialist from [facility] called and bed assignment given. [facility] to arrange transport.
== END 2018-08-05 20:30 | disposition short-term general hospital (02) | DRG 374 ==
LOC: ED 12:06 → PCU 15:17
PROVIDERS: Family Medicine; Nurse Practitioner Family; Surgery; Admitting Provider Hospitalist; Emergency Provider Emergency Medicine; Family Provider Family Medicine; PCP Family Medicine; Visit Provider Internal Medicine
PROC: 0DJD8ZZ Inspection of Lower Intestinal Tract, Via Natural or Artificial Opening Endoscopic (ICD-10-PCS; CPT 45378; principal; 2018-08-05 09:55)
DX: C19 Malignant neoplasm of rectosigmoid junction (principal); E43 Unspecified severe protein-calorie malnutrition; D62 Acute posthemorrhagic anemia; E87.1 Hypo-osmolality and hyponatremia; Z68.1 Body mass index [BMI] 19.9 or less, adult; K92.2 Gastrointestinal hemorrhage, unspecified; C78.01 Secondary malignant neoplasm of right lung; R64 Cachexia; E87.6 Hypokalemia
CPT/HCPCS: 36415; 71260; 74177; 80048; 80053; 82274; 82378; 82728; 82962; 83036; 83540; 83550; 84443; 84484; 85025; 85610; 85730; 86850; 86900; 86920; 86922; 88305; 88341; 88342; 97802; 99284; J7030; P9016; Q9967; A4216; J2405

== ENCOUNTER 2018-08-31 08:55 | Day surgery (SDC) | payer OTHER, SELFPAY ==
[2018-08-31] VITALS (8 sets, daily range): BP systolic 105–115; BP diastolic 66–69; PULSE 78–99; RESP 14–16; TEMP 36.9–37.4; O2SAT 95–100; BMI 17.9
[2018-08-31] MEDS: Cefazolin 2 GM in 0.9% Normal Saline 100 ML IV (11:20)
[2018-08-31] MEDS: Bupivacaine Mpf 0.5% 30 ML VIAL (11:40)
--- NOTE | 2018-08-31 12:00 | OP.PCM_ITS ---
Report of Operation Date of Procedure: 08/31/18 Pre-Operative Diagnosis: colon cancer, need for IV access Post-Operative Diagnosis: colon cancer, successful left subclavian portacath Surgery/Procedure Performed:: left subclavian portacath placement, fluoroscopy electroencephalographic technologist: None Specimen's removed: none Estimated Blood Loss (mL): 15 Fluids Replaced: 750 Description of Procedure: The patient was brought to the operating suite. The left subclavian site was marked in the holding area and the patient concurred this was the planned oper ative site. Sign was performed verifying patient, site, position, skip antibiotic prophylaxis-2 g of Ancef and DVT prophylaxis with SCDs. Following IV sedation, the left neck and chest were prepped and draped in the usual fashion. Timeout was performed verifying patient, site, position. Local anesthetic was injected and a Seldinger needle was used to access the left subclavian vein without difficulty. Under fluoroscopic control, a guidewire was inserted and advanced the SVC RA region. Local anesthetic was injected and incision made and pocket created for the port site. Next the catheter was tunneled from the wire site incision to the port site incision. Under fluoroscopic control introducer sheath and dilator were inserted over the wire. The wire and dilator removed. The catheter was fed through the introducer suture sheath and adjusted to the SVC RA region. There was good return of venous blood and easy inflow of saline through the system. Fluoroscopy demonstrated good positioning of the catheter. Next the catheter was cut to length affixed to the port with the locking ring and secured in the pocket with 2-2-0 Prolene sutures. Subcutaneous fat closed with interrupted 3-0 Vicryl suture. Skin closed with 4-0 Biosyn interrupted and running subcuticular sutures. Fluoroscopy demonstrated good position of the system. The port was accessed. There was good return of venous blood. Inflow of saline was easy. The port was then flushed with 2-3 cc of 100 unit per heparin solution. A dressing was applied. The patient was brought to recovery room in stable condition. Grafts/Implants Used: bard powerport [id number] lot- [id number] - exp - 02/17/2020 - Admit VTE Documentation VTE Present on Admission: No VTE Mechan Device Prophylaxis: SCD's
--- NOTE | 2018-08-31 12:01 | RAD_ITS ---
STUDY: X-RAY CHEST REASON FOR EXAM: Female, 63 years old. Port placement. TECHNIQUE: Single AP portable view of the chest. COMPARISON: None. FINDINGS: A left-sided flynn catheter as been placed. The tip is at the junction of the superior vena cava and right atrium. There is no evidence of pneumothorax. EKG lead are seen. There is a 2 cm x 1.4 cm lobulated nodule in the right lower lobe. There is no demonstrated pleural abnormality. Normal size heart. Normal mediastinum and tameka. Normal visualized pulmonary arteries. Normal visualized aortic arch and descending thoracic aorta. Normal visualized thoracic spine. Normal visualized ribs, clavicles, and shoulders. There is no demonstrated abnormality of the visualized soft tissue structures of the upper abdomen. RAD/CXR for Line Placement IMPRESSION: The tip of the left flynn catheter is at the junction of the superior vena cava and right atrium. Lobulated nodule in the right lower lobe. Electronically Signed: Shukri Lacy MD at 12:46 EST Tel [phone], Service support ,
--- NOTE | 2018-08-31 12:03 | DCINST_ITS ---
Discharge Diet: No Restrictions - Pain medication may cause nausea. You should typically eat light foods as you take your pain medication. Discharge Activity: Return to Normal Activity, May Shower - with the bandage in place 1-2 days after surgery. DO NOT SHOWER WHEN YOUR PORT IS ACCESSED. Additional Activity Instructions:: May not drive, work with heavy equipment, or sign legal documents for [address] if you are no longer taking narcotic pain medications. You may drive when you are no longer taking pain medications. Additional Dressing/Incision Instructions:: Leave the bandage on for 2-3 days. When you remove the bandage, leave the steri-strips intact until they fall off. Allergies/Adverse Reactions: Allergies No Known Allergies Allergy (Verified 08/26/18 15:16) Medications to take at Discharge Multivit-Min/Iron/Folic/Lutein [Centrum Silver Women Tablet] 1 tab PO DAILY 08/03/18 Polyethylene Glycol 3350 [Miralax] 17 gm PO BID 08/26/18 Oxycodone [Oxyir] 5 - 10 mg PO Q6H PRN PRN 7 Days #10 tab 08/31/18 The following prescriptions were given: Oxycodone [Oxyir] 5 - 10 mg PO Q6H PRN PRN 7 Days #10 tab PRN Reason: Mod-Severe Pain (4-07/29) Primary Care Physician: Damon Noriega MD [Primary Care Provider] - Test Results: Test results from this visit will be discussed in further detail at your follow- up appointment, if applicable. Please Follow Up With: Isaiah Putnam MD - [phone] When: Please plan to follow up in 7 days in the office.
== END 2018-08-31 13:20 | disposition home or self-care (01) ==
LOC: SDC 09:00 → AC 09:01
PROVIDERS: Family Provider Family Medicine; PCP Family Medicine; Referring Provider Surgery; Visit Provider Surgery
PROC: (CPT 36571; principal; 2018-08-31 13:45)
DX: C19 Malignant neoplasm of rectosigmoid junction (principal); Z45.2 Encounter for adjustment and management of vascular access device; D50.0 Iron deficiency anemia secondary to blood loss (chronic); R91.1 Solitary pulmonary nodule; Z79.899 Other long term (current) drug therapy
CPT/HCPCS: 36571; 71045; 77001; J7120; C1788

== ENCOUNTER 2019-06-13 09:54 | Inpatient (IN) | payer OTHER, SELFPAY ==
[2019-06-13] VITALS (7 sets, daily range): BP systolic 91–139; BP diastolic 60–86; PULSE 76–106; RESP 10–18; TEMP 36–36.8; O2SAT 98–100; BMI 20.2; BMI 20.1
--- NOTE | 2019-06-13 10:35 | ED.DCSUM_ITS ---
History of Present Illness <Luciana Vo - Last Filed: 06/13/19 10:48> Informant: Patient, Family - Abdominal Pain/Flank Pain Onset: Days - 5 days Context: Gradual Onset Timing: Continuous Quality: Burning Location: Epigastric Current Severity: Severe Maximum Severity: Severe Worsened by: Food Relieved by: Remaining Still - Nausea/Vomiting/Emesis GI Symptom: Nausea, Vomiting Onset: Days - 5 Quality: Nonbilious Severity: Severe Episodes: 5 - Diarrhea/Melena/Hematochezia GI Symptom: Diarrhea. Negative for: Melena, Hematochezia Onset: Days - 5 Stool Quality: Loose, Watery Severity: Moderate Episodes: 7 Associated Symptoms: Negative for: Dysuria, Frequency, Hematuria, Urgency Narrative: 63-year-old female history of malignant rectal cancer with metastasis to lung currently on chemotherapy status post colectomy with ostomy presents to the emergency department 5 days of nausea vomiting and diarrhea that began after her last chemotherapy treatment. She has been unable to keep down food or fluid. She feels that she may be dehydrated. She is having mild epigastric pain. She has not had a fever. She has not had blood in her vomit or coffee-ground emesis. She has not seen blood or melena in her ostomy bag. She has been urinating normally. She has no sick contacts. She denies any upper respiratory infection symptoms. She has not been short of breath. Prior similar symptoms: Yes Recent Illness/Hospitalization: No <Sean Turner - Last Filed: 06/13/19 12:17> Chief Complaint: Nausea/Vomiting/Diarrhea Past Medical History <Luciana Vo - Last Filed: 06/13/19 10:48> Past Medical History: - - Rectal cancer with metastasis to lung Surgical History: tonsillectomy, - - colectomy with ostomy Lives: With Family Smoking Status: Never smoker - Family History Maternal Family History: Reports: - - History of breast cancer on her mother side, not on her mother herself. Paternal Family History: Reports: No pertinent history <Sean Turner - Last Filed: 06/13/19 12:17> - Allergies and Home Meds Allergies/Adverse Reactions: Allergies No Known Allergies Allergy (Verified 06/13/19 09:57) Primary Care Physician: Damon Noriega MD [Primary Care Provider] - Review of Systems All systems negative except as indicated General: Denies: Chills, Fever Gastrointestinal: Reports: Abdominal pain, Nausea, Vomiting, Diarrhea <TanoallisonSean - Last Filed: 06/13/19 12:17> Physical Exam Vital Signs/Narrative: Vital Signs Temp Pulse Resp BP Pulse Ox 06/13/19 09:57 96.8 F L 106 H 10 L 92/60 99 <Luciana Vo - Last Filed: 06/13/19 10:48> Vital Signs/Narrative: Vital Signs Temp Pulse Resp BP Pulse Ox 06/13/19 09:57 96.8 F L 106 H 10 L 92/60 99 Inital Vital Signs reviewed: Yes General: Well nourished, Well developed, No Acute Distress Head: Normocephalic, Atraumatic Eyes: Perrl, EOMI ENT: Dry mucous membranes Neck: Supple, Nontender Cardiovascular: Regular rate, Regular rhythm Respiratory: No distress, CTA bilaterally, Chest nontender Abdomen: Soft, Nontender, Nondistended, Normal bowel sounds, No masses - ostomy bag in place. no surrounding signs of infection Back: Nontender, Normal Inspection Extremities: Nontender, No edema Skin: Normal color, No rash Neurological: Alert, Oriented x3 Psychological: Normal affect <JohnnySean - Last Filed: 06/13/19 12:17> Diagnostic/Tx/Re-eval - Medical Decision Making Patient seen with Sean history of rectal cancer chemotherapy metastasis to the right chest lung area doing well last chemo was a few days ago developed vomiting diarrhea Exam head neck chest abdomen unremarkable ostomy is draining stool neurologic exam normal she will receive evaluation fluids see the chart for full details <Luciana Vo - Last Filed: 06/13/19 10:48> - Medical Decision Making Patient's vital signs are stable. She is afebrile. Presents with concern for dehydration and intractable nausea vomiting and diarrhea. IV fluids started. IV Zofran given. Laboratory work-up shows neutropenia which is consistent with previous values however she has a new onset renal failure with a BUN of over 100 and a creatinine of 4.55. She was given a second liter of fluids. She is no longer vomiting. Her abdomen is soft and nontender. She will require admission for dehydration and acute renal failure. I spoke with the hospitalist Dr. Walker for admission. <Sean Turner - Last Filed: 06/13/19 12:17> ED Disposition <Luciana Vo - Last Filed: 06/13/19 10:48> <Sean Turner - Last Filed: 06/13/19 12:17> - Plan for ED Patient: Disposition: Acute Care Hospital [facility] Diagnosis: Nausea vomiting and diarrhea, ARF (acute renal failure), Dehydration, Rectal cancer metastasized to lung Referrals: Damon Noriega MD [Primary Care Provider] -
[2019-06-13] MEDS: 0.9% Normal Saline 1,000 ML 1000 ML IV ×2 (10:45→11:51)
[2019-06-13] MEDS: Ondansetron 4 MG/2 ML Vial IV ×2 (10:46→19:37)
[2019-06-13 10:55] LABS: Absolute Lymphocyte Count 0.39 X10^3/uL (0.83-4.51); Absolute Neutrophil Count 2.3 X10^3/uL (2.0-7.7); Basophil# 0.04 X10^3/uL; Basophil% 1.3 % (0-1); Eosinophil# 0.01 X10^3/uL; Eosinophils% 0.3 % (0-5); Hematocrit 47.4 % (37-47); Hemoglobin 16.4 g/dL (12.0-15.0); Lymphocyte # 0.39 X10^3/ul (4.0); Lymphocyte % 12.4 % (19-41); Mean Corp Hgb Conc 34.6 g/dL (32-36); Mean Corpuscular Hgb 30.7 pg (27.0-32.0); Mean Corpuscular Volume 88.8 fL (81-99); Mean Platelet Vol. 9.5 fl (6.2-12.0); Monocyte# 0.36 X10^3/uL; Monocyte% 11.4 % (0-10); NRBC Flagged by Analyzer 0 % (0-5); Neutrophil # 2.32 X10^3/uL (2.7-7.7); Neutrophil % 73.6 % (47-70); POSITIVE DIFFERENTIAL YES; POSITIVE MORPHOLOGY YES; Platelet Count 219 K/mm3 (150-450); RBC Distribution Width CV 16.3 % (11.6-14.6); Red Blood Count 5.34 M/mm3 (4.2-5.4); White Blood Count 3.2 K/mm3 (4.4-11.0)
[2019-06-13 10:57] LABS: Differential Indicated SCAN CRITERIA MET
[2019-06-13 11:16] LABS: Differential Comment SCANNED
[2019-06-13 11:24] LABS: ALB/GLOB Ratio 0.8 RATIO (0.9-2.4); AST(SGOT) 23 U/L (15-37); Alanine Aminotransfer ALT/SGPT 42 U/L (13-56); Alkaline Phosphatase 144 U/L (45-117); Anion Gap 20 (5-15); BUN 105 mg/dL (7-18); BUN/Creat Ratio 23.1 RATIO (10-20); Calcium,Total 9.6 mg/dL (8.5-10.1); Chloride 85 mmol/L (98-107); Creatinine, Serum 4.55 mg/dL (0.55-1.02); EST Glomerular Filtration Rate 10 mL/min (>60); Est Glom Filt Rate - Afr Amer 13 mL/min (>60); Estimated Creatinine Clearance 11.34 ml/min; Glucose 266 mg/dL (74-106); Sodium Level 126 mmol/L (136-145)
--- NOTE | 2019-06-13 12:03 | NURSING ---
DR NICOLE FOR DR PAYNE
--- NOTE | 2019-06-13 12:08 | NURSING ---
MED SURG GASTROENTERITIS WITH DEHYDRATION, AND ACUTE RENAL FAILURE BONNIE
--- NOTE | 2019-06-13 12:20 | ED.RN ---
PT TOLERATING ICE CHIPS WELL; NOT ABLE TO PROVIDE URINE SAMPLE. 2ND LITER NS INFUSING.
--- NOTE | 2019-06-13 12:34 | HP.PCM_ITS ---
Problem List (1) Rectosigmoid mass Status: Acute (2) ARF (acute renal failure) Status: Acute (3) Dehydration Status: Acute (4) Nausea vomiting and diarrhea Status: Acute (5) Rectal cancer metastasized to lung Status: Acute History of Present Illness Date of Admission: 06/13/19 Chief Complaint: Vomting and Diarrhea The patient is a 63 year old F with PMH of a rectosigmoid mass with metastasis to the right lung status post resection and colostomy. She has been receiving chemotherapy, and had her fifth round of chemo on Friday and then on she began having increased ostomy output followed by nausea and vomiting. Continued to have difficulty keeping any food down and decided to come into the hospital today because she felt significantly dehydrated was unable to keep up with oral hydration. She feels much better now that they started IV fluids in the ER and states that she is noticed her ostomy output has begun to slow down. She denies any sick contacts at home and no recent antibiotic use. Labs in the ER were remarkable for acute renal failure with a creatinine of 4.55 from a baseline of 0.41, and hyponatremia and hypochloremia. Past Medical History Allergies No Known Allergies Allergy (Verified 06/13/19 09:57) Home Medications: Ambulatory Orders Medication Instructions Recorded Multivit-Min/Iron/Folic/Lutein 1 tab PO DAILY 08/03/18 [Centrum Silver Women Tablet] Ondansetron HCl [Zofran] 8 mg PO PRN PRN 06/13/19 Surgical History: tonsillectomy, - - colectomy with ostomy Psychiatric History: No pertinent psych hx DIRECTOR OF STRATEGIC SOURCING History: No pertinent DIRECTOR OF STRATEGIC SOURCING history Lives: With Family Smoking Status: Never smoker Alcohol: None Drugs: None - *Family History Maternal History Items: Heart Disease, - - History of breast cancer on her mother side, not on her mother herself. Paternal History Items: Heart Disease Review of Systems Constitutional: Denies: Chills, Fever, Weight Change HEENT: Denies: Head Aches, Sinus Congestion, Sinus Drainage Cardiovascular: Denies: Chest Pain, Palpitations Respiratory: Denies: Cough, Shortness of breath at rest, Sputum production Gastrointestinal: Reports: Diarrhea, Nausea, Vomiting. Denies: Abdominal Pain Genitourinary: Denies: Dysuria Musculoskeletal: Denies: Joint Pain, Joint Tenderness Skin: Denies: Rash, Wounds Neurological: Denies: Numbness, Tingling, Focal weakness Psychiatric: Denies: Anxiety, Depression Hematologic/ Lymphatic: Denies: Easy Bruising, Easy Bleeding VTE Information - Inpt Only VTE Present on Admission: No Patient Problems: Active and Suspected Problems Nausea vomiting and diarrhea (Acute) ARF (acute renal failure) (Acute) Dehydration (Acute) Rectal cancer metastasized to lung (Acute) - Physical Exam General: Alert, Oriented x3, Cooperative, No apparent distress, - HEENT: Atraumatic, PERRLA, EOMI, Normocephalic Oral: Dry Mucosa Neck: Supple, No JVD Lungs: Clear to auscultation, Normal air movement, No rhonchi, No wheeze, No rales Cardiovascular: Regular rate, Regular Rhythm, Normal S1, Normal S2, No murmurs Abdomen: Soft, Non Tender, Non-Distended, No Hepato-splenomegaly, - - Ostomy in place Extremities: No edema, Capillary Refill Less than 3 Seconds Skin: No rashes, No breakdown Neurological: Neuro grossly intact, Sensory exam intact to light touch and pain Psych/Mental Status: Normal Affect, Appropriate Vital Signs Temp Pulse Resp BP Pulse Ox 96.8 F L 78 16 122/86 H 99 06/13/19 09:57 06/13/19 12:14 06/13/19 12:14 06/13/19 12:14 06/13/19 09:57 Oxygen Delivery Method Room Air Weight: 122 lb Body Mass Index (BMI) 20.2 Intake and Output for Last 24 Hours 06/11/19 06/12/19 06/13/19 23:59 23:59 23:59 Intake Total 1000 / 1000 Balance 1000 / 1000 Laboratory Tests Past 24 Hrs 06/13/19 06/13/19 10:45 10:45 WBC 3.2 L RBC 5.34 Hgb 16.4 H Hct 47.4 H MCV 88.8 MCH 30.7 MCHC 34.6 RDW Std Deviation 52.0 H RDW Coeff of Cassi 16.3 H Plt Count 219 MPV 9.5 Immature Gran % (Auto) 1.000 H Neut % (Auto) 73.6 H Lymph % (Auto) 12.4 L Coos % (Auto) 11.4 H Eos % (Auto) 0.3 Baso % (Auto) 1.3 H Absolute Neuts (auto) 2.3 Absolute Lymphs (auto) 0.39 L Nucleated RBC % 0 Differential Comment SCANNED Diff Path Review May foll Sodium 126 L Potassium 4.0 Chloride 85 L Carbon Dioxide 21.0 Anion Gap 20 H BUN 105 H* Creatinine 4.55 H Estim Creat Clear Calc 11.34 Est GFR (MDRD) Af Amer 13 L Est GFR (MDRD) Non-Af 10 L BUN/Creatinine Ratio 23.1 H Glucose 266 H Calcium 9.6 Total Bilirubin 1.20 H AST 23 ALT 42 Alkaline Phosphatase 144 H Total Protein 11.0 H Albumin 5.0 Globulin 6.0 H Albumin/Globulin Ratio 0.8 L Assessment/Plan All Active Problems Nausea vomiting and diarrhea (Acute) ARF (acute renal failure) (Acute) Dehydration (Acute) Rectal cancer metastasized to lung (Acute) Unintentional weight loss (Acute) Lung nodule (Acute) Rectosigmoid mass (Acute) GI bleed (Acute) Acute blood loss anemia (Acute) 1. Acute dehydration and acute renal failure secondary to viral gastroenteritis versus chemotherapy-induced gastroenteritis/hyponatremia and hypochloremia -Continue with IV Zofran and Compazine as needed for nausea -She received 2 L of normal saline in the ER, will continue with normal saline at 150 in the inpatient -Baseline creatinine 0.4, her creatinine today is 4.55 with a BUN of 105 -She is feeling much better therefore we will repeat BMP in the morning if still elevated then would consider consulting nephrology -She is afebrile and has no signs of infection, and no recent history of antibiotic use to consider C. difficile as a culprit. -She states that she is starting to feel hungry again therefore regular diet was ordered, she was advised to go slow. -Anticipate that the hyponatremia and hypochloremia will resolve with adequate fluid resuscitation -Hyperglycemia is likely a stress reaction, she does not have any diagnosis of diabetes prior 2. Stage IV rectal cancer with mets to the lung status post resection and colostomy -She had her fifth out of 6 chemo doses on Friday and then had symptoms on . This the first time she has had any side effects from chemotherapy. -Discussed with her that she could likely get her sixth dose and then just would have to be monitored closely with outpatient fluid resuscitation if this were to happen again DVT: Heparin Code Visit Inpatient E&M: 26796 Init Hosp L2
[2019-06-13] MEDS: 0.9% Normal Saline 1,000 ML 150 ML IV ×2 (13:06→19:50)
[2019-06-13] MEDS: 0.9% NaCl VAD Flush IV (19:38)
[2019-06-13] MEDS: Heparin Injection (Vial) 5,000 UNIT/ML VIAL 5000 UNIT SC (22:09)
[2019-06-14] MEDS: 0.9% Normal Saline 1,000 ML 150 ML IV ×4 (02:35→21:44)
[2019-06-14 03:31] VITALS: BP 114/64; PULSE 67; RESP 16; TEMP 36.7; O2SAT 99
[2019-06-14 03:52] LABS: Bacteria 0 SEEN /hpf (None Seen); Mucous, Urine 0 SEEN /hpf (<or=2+); Red Blood Cells-Urine 0 SEEN /hpf (0-5)
[2019-06-14 04:01] LABS: Color, Urine Yellow (Yellow); Glucose, Dipstick Normal (Normal); Ketone-Dipstick Negative (Negative); Leukocyte Esterase-Dipstick Negative /ul (Negative); Nitrite-Dipstick Negative (Negative); Occult Blood-Urine 25 /ul (Negative); Protein-Dipstick 30 mg/dl (Negative); Urine Bilirubin Dipstick Negative (Negative); Urine Clarity Clear (Clear); Urine Urobilinogen Normal (Normal)
[2019-06-14 04:06] LABS: Hyaline Cast 0-5 SEEN /lpf (0-5)
[2019-06-14 04:07] LABS: Squamous Epithelial Cells - UA 0-5 SEEN /hpf (5-10); White Blood Cells 0-5 SEEN /hpf (0-5)
[2019-06-14 05:27] LABS: Absolute Lymphocyte Count 0.36 X10^3/uL (0.83-4.51); Absolute Neutrophil Count 1.2 X10^3/uL (2.0-7.7); Basophil# 0.01 X10^3/uL; Basophil% 0.5 % (0-1); Eosinophil# 0.05 X10^3/uL; Eosinophils% 2.6 % (0-5); Hematocrit 32.9 % (37-47); Hemoglobin 11.1 g/dL (12.0-15.0); Lymphocyte # 0.36 X10^3/ul (4.0); Lymphocyte % 18.4 % (19-41); Mean Corp Hgb Conc 33.7 g/dL (32-36); Mean Corpuscular Hgb 30.2 pg (27.0-32.0); Mean Corpuscular Volume 89.6 fL (81-99); Mean Platelet Vol. 9.3 fl (6.2-12.0); Monocyte# 0.35 X10^3/uL; Monocyte% 17.9 % (0-10); NRBC Flagged by Analyzer 0 % (0-5); Neutrophil # 1.17 X10^3/uL (2.7-7.7); Neutrophil % 59.6 % (47-70); POSITIVE DIFFERENTIAL YES; POSITIVE MORPHOLOGY YES; Platelet Count 102 K/mm3 (150-450); RBC Distribution Width CV 15.9 % (11.6-14.6); RBC Distribution Width SD 52.8 fl (35.1-43.9); Red Blood Count 3.67 M/mm3 (4.2-5.4)
[2019-06-14 05:32] LABS: Differential Indicated SCAN CRITERIA MET
[2019-06-14 06:02] LABS: BUN 67 mg/dL (7-18); Creatinine, Serum 1.75 mg/dL (0.55-1.02); Estimated Creatinine Clearance 29.26 ml/min; Glucose 92 mg/dL (74-106)
[2019-06-14 06:03] LABS: Anion Gap 9 (5-15); BUN/Creat Ratio 38.3 RATIO (10-20); Calcium,Total 8.1 mg/dL (8.5-10.1); Chloride 106 mmol/L (98-107); EST Glomerular Filtration Rate 31 mL/min (>60); Est Glom Filt Rate - Afr Amer 38 mL/min (>60); Potassium 3.7 mmol/L (3.5-5.1); Sodium Level 139 mmol/L (136-145)
[2019-06-14 07:10] LABS: Differential Comment SCANNED
--- NOTE | 2019-06-14 08:29 | PCM.PROGNOTE ---
Patient Problems: Active and Suspected Problems Nausea vomiting and diarrhea (Acute) ARF (acute renal failure) (Acute) Dehydration (Acute) Rectal cancer metastasized to lung (Acute) Subjective: Ms. Diaz is a 63-year-old female with a past medical history of a rectosigmoid mass with metastasis to the right lung status post resection and colostomy and currently receiving chemotherapy who presented to the emergency department at [facility] on 06/13/2019 complaining of home vomiting and increased watery output from her ostomy. Vital signs at presentation to the emergency department were temperature 96.8, pulse rate 106, blood pressure 92/60, respiratory rate 10 and she was 99% saturated on room air. White blood cell count was low at 3.2 and hemoglobin was increased at 16.4 secondary to hemoconcentration. Platelets were within normal limits. Sodium was low at 126 and the BUN was 105 with a creatinine of 4.55, up from 0.41 in July 2018. Random blood sugar was 266. UA had 0-5 WBCs and was nitrite negative. Last chemo was 06/08. She was admitted to the hospital and IV fluids were continued. Afebrile since admission. Hypotension has resolved. She is not tachycardic. O2 saturation remains 98 to 100% on room air. Oral intake on 06/13/2019 was 600 cc and she had an additional 1200 cc overnight. All lab was personally reviewed. The white blood cell count today is 2.0. The ANC is approximately 1,200. Hemoglobin is 11.1 following hydration and the platelets are down to 102,000. Sodium has been adequately repleted and is 139 today. The BUN is down to 67 with a creatinine of 1.75. continues to have large volume ostomy output ....1300 overnight. Denies nausea, no emesis, no abdominal pain, not recent antibiotics, no hx of C. DIFF, no sick contacts. Denies lightheadedness. - Physical Exam General: Alert, Oriented x3, Cooperative, No apparent distress HEENT: Atraumatic, PERRLA, EOMI, Normocephalic Oral: No Gingival or Mucosal Lesions/ Ulcerations, Dry Mucosa, - - tongue is coated Neck: Supple, No JVD, Negative Carotid Bruits Lungs: Clear to auscultation, Normal air movement, No rhonchi, No wheeze, No rales Cardiovascular: Regular rate, Regular Rhythm, Normal S1, Normal S2, Murmur - short systolic MM at the apex and the LLSB only, No rub noted, No Gallop Abdomen: Soft, Non Tender, Non-Distended, Hypoactive Bowel Sounds, - - stool in the ostomy bag is yellow/green Extremities: No clubbing, No cyanosis, No edema, No Calf Tenderness, Peripheral Pulses Normal Neurological: Cranial nerves II-XII grossly intact, Neuro grossly intact Psych/Mental Status: Normal Affect, Appropriate Vital Signs Temp Pulse Resp BP Pulse Ox 98.1 F 67 16 114/64 99 06/14/19 03:31 06/14/19 03:31 06/14/19 03:31 06/14/19 03:31 06/14/19 03:31 Oxygen Delivery Method Room Air Weight: 121 lb 0.54 oz Body Mass Index (BMI) 20.1 Intake and Output for Last 24 Hours 06/12/19 06/13/19 06/14/19 23:59 23:59 23:59 Intake Total 4157.5 / 4757.5 1642.5 / 1642.5 Output Total 700 / 1300 2049 / 2049 Balance 3457.5 / 3457.5 -407.5 / -407.5 Laboratory Tests Past 24 Hrs 06/13/19 06/13/19 06/14/19 10:45 10:45 03:20 WBC 3.2 L RBC 5.34 Hgb 16.4 H Hct 47.4 H MCV 88.8 MCH 30.7 MCHC 34.6 RDW Std Deviation 52.0 H RDW Coeff of Cassi 16.3 H Plt Count 219 MPV 9.5 Immature Gran % (Auto) 1.000 H Neut % (Auto) 73.6 H Lymph % (Auto) 12.4 L Taliaferro % (Auto) 11.4 H Eos % (Auto) 0.3 Baso % (Auto) 1.3 H Absolute Neuts (auto) 2.3 Absolute Lymphs (auto) 0.39 L Nucleated RBC % 0 Differential Comment SCANNED Diff Path Review May foll Sodium 126 L Potassium 4.0 Chloride 85 L Carbon Dioxide 21.0 Anion Gap 20 H BUN 105 H* Creatinine 4.55 H Estim Creat Clear Calc 11.34 Est GFR (MDRD) Af Amer 13 L Est GFR (MDRD) Non-Af 10 L BUN/Creatinine Ratio 23.1 H Glucose 266 H Calcium 9.6 Total Bilirubin 1.20 H AST 23 ALT 42 Alkaline Phosphatase 144 H Total Protein 11.0 H Albumin 5.0 Globulin 6.0 H Albumin/Globulin Ratio 0.8 L Urine Color Yellow Urine Clarity Clear Urine pH 6.0 Ur Specific Kennard 1.020 Urine Protein 30 H Urine Glucose (UA) Normal Urine Ketones Negative Urine Occult Blood 25 H Urine Nitrite Negative Urine Bilirubin Negative Urine Urobilinogen Normal Ur Leukocyte Esterase Negative Urine RBC 0 SEEN Urine WBC 0-5 SEEN Ur Squamous Epith Cells 0-5 SEEN Urine Bacteria 0 SEEN Hyaline Casts 0-5 SEEN Urine Mucus 0 SEEN 06/14/19 06/14/19 05:07 05:07 WBC 2.0 L RBC 3.67 L Hgb 11.1 L Hct 32.9 L MCV 89.6 MCH 30.2 MCHC 33.7 RDW Std Deviation 52.8 H RDW Coeff of Cassi 15.9 H Plt Count 102 L MPV 9.3 Immature Gran % (Auto) 1.000 H Neut % (Auto) 59.6 Lymph % (Auto) 18.4 L Taliaferro % (Auto) 17.9 H Eos % (Auto) 2.6 Baso % (Auto) 0.5 Absolute Neuts (auto) 1.2 L Absolute Lymphs (auto) 0.36 L Nucleated RBC % 0 Differential Comment SCANNED Diff Path Review February foll Sodium 139 Potassium 3.7 Chloride 106 Carbon Dioxide 24.0 Anion Gap 9 BUN 67 H Creatinine 1.75 H Estim Creat Clear Calc 29.26 Est GFR (MDRD) Af Amer 38 L Est GFR (MDRD) Non-Af 31 L BUN/Creatinine Ratio 38.3 H Glucose 92 Calcium 8.1 L Total Bilirubin AST ALT Alkaline Phosphatase Total Protein Albumin Globulin Albumin/Globulin Ratio Urine Color Urine Clarity Urine pH Ur Specific Kennard Urine Protein Urine Glucose (UA) Urine Ketones Urine Occult Blood Urine Nitrite Urine Bilirubin Urine Urobilinogen Ur Leukocyte Esterase Urine RBC Urine WBC Ur Squamous Epith Cells Urine Bacteria Hyaline Casts Urine Mucus Medical Necessity - Tobacco Use Smoking Status: Never smoker Assessment/Plan All Active Problems Nausea vomiting and diarrhea (Acute) ARF (acute renal failure) (Acute) Dehydration (Acute) Rectal cancer metastasized to lung (Acute) Unintentional weight loss (Acute) Lung nodule (Acute) Rectosigmoid mass (Acute) GI bleed (Acute) Acute blood loss anemia (Acute) Impressions 1. N/V/D with excess liquid OP form the ostomy - Etiology? Will check Enteric pathogen panel and a C.DIFF and fecal leuko's. 2. Acute renal failure-likely secondary to prerenal azotemia. Improving with hydration. Continue IV fluids. 3. Severe dehydration 4. Pancytopenia-likely related to chemotherapy 5. Colon cancer with metastasis to the right lung. Status post colon resection with ostomy. Currently receiving chemotherapy and has had 5 of scheduled [address] Pittman. Code Visit Inpatient E&M: 99712 Subs Hosp L2
[2019-06-14 08:50] VITALS: BP 101/60; PULSE 72; PULSE 76; RESP 18; TEMP 37; O2SAT 97
[2019-06-14] MEDS: Heparin Injection (Vial) 5,000 UNIT/ML VIAL 5000 UNIT SC ×2 (09:57→21:39)
[2019-06-14 11:04] LABS: Magnesium 2.4 mg/dL (1.6-2.6); Phosphorus 2.7 mg/dL (2.5-4.9)
--- NOTE | 2019-06-14 11:08 | CASEMGMT ---
Social Work Note Per assembly hand questions, pt has completed HCPOA and LW but hasn't provided copy to [facility]. Adelia Walden SENIOR NUCLEAR MEDICINE TECHNOLOGIST, STOPPERER ASSEMBLER
--- NOTE | 2019-06-14 13:25 | CASEMGMT ---
Addendum entered by Esvin Bagley 06/16/19 16:23: Correction: the addendum entered 06/16/19 @ 1622 stating Confirmation received that fax to [employer] went through successfully was entered in error. This documentation was not meant for this patient. Addendum entered by Esvin Bagley 06/16/19 16:22: Confirmation received that fax to [employer] went through successfully. Original Note: RN CM Face to Face with patient for initial transition planning/care coordination assessment. RN CM introduced self and role at [facility]. Patient lying in bed, alert and oriented. Patient willing to participate in assessment and is able to answer all questions appropriately. Care providers, pharmacy, and demographics verified. Patient wishes to discharge home, denies need for home health at this time. Patient states he has no further needs or concerns at this time. CM to follow for discharge planning needs that may arise. PCP: Leann Specialists: Zain, oncologist/mechanical design technician Preferred Pharmacy: [facility] Insurance: Commercial other Prescription Benefit: yes Living Will/HPOA: yes, Hadley Diaz LNOK: Living Arrangements: patient lives with in a duplex. Patient is independent at home. Transportation: self DME/HHC: Patient denies DME in the home. Patient states she has had VNS in the past. Disposition Plan: Patient to discharge home with family support and follow-up plans in place. Adelia LOUIE, RN, CM
[2019-06-14 15:17] VITALS: BP 111/63; PULSE 78; RESP 18; TEMP 36.8; O2SAT 98
[2019-06-14 20:05] VITALS: BP 112/67; PULSE 69; RESP 17; TEMP 36.7; O2SAT 100
[2019-06-15 02:05] VITALS: BP 103/70; PULSE 65; RESP 16; TEMP 36.4; O2SAT 100
[2019-06-15] MEDS: 0.9% Normal Saline 1,000 ML 150 ML IV (04:20)
[2019-06-15 07:12] LABS: Hematocrit 30.7 % (37-47); Hemoglobin 10.2 g/dL (12.0-15.0); Mean Corp Hgb Conc 33.2 g/dL (32-36); Mean Corpuscular Hgb 30.4 pg (27.0-32.0); Mean Corpuscular Volume 91.4 fL (81-99); Mean Platelet Vol. 9.2 fl (6.2-12.0); Platelet Count 72 K/mm3 (150-450); RBC Distribution Width CV 15.9 % (11.6-14.6); RBC Distribution Width SD 52.2 fl (35.1-43.9); Red Blood Count 3.36 M/mm3 (4.2-5.4); White Blood Count 1.7 K/mm3 (4.4-11.0)
[2019-06-15 07:24] LABS: Anion Gap 4 (5-15); BUN 29 mg/dL (7-18); BUN/Creat Ratio 35.8 RATIO (10-20); Calcium,Total 8.3 mg/dL (8.5-10.1); Chloride 110 mmol/L (98-107); Creatinine, Serum 0.81 mg/dL (0.55-1.02); EST Glomerular Filtration Rate 76 mL/min (>60); Est Glom Filt Rate - Afr Amer 92 mL/min (>60); Estimated Creatinine Clearance 63.21 ml/min; Glucose 76 mg/dL (74-106); Magnesium 2.3 mg/dL (1.6-2.6); Phosphorus 1.9 mg/dL (2.5-4.9); Potassium 3.1 mmol/L (3.5-5.1); Sodium Level 141 mmol/L (136-145)
[2019-06-15 09:42] VITALS: BP 101/54; PULSE 80; RESP 18; TEMP 36.4; O2SAT 96
[2019-06-15] MEDS: Heparin Injection (Vial) 5,000 UNIT/ML VIAL 5000 UNIT SC (09:55)
--- NOTE | 2019-06-15 11:17 | DCINST_ITS ---
- Discharge Diagnoses Current Active Problems: Current Active and Chronic Problems Nausea vomiting and diarrhea (Acute) ARF (acute renal failure) (Acute) Dehydration (Acute) Rectal cancer metastasized to lung (Acute) You will use the following diet at home:: Other - no caffeine or spicy foods until you are done with the antibiotic. Metamucil can sometimes help to firm up the stool......sometimes bananas, rice and applesauce also help Your food should be the consistency of: Regular - low resiude until the stool is less liquid Your liquids should be the consistency of: Regular/Thin Discharge Activity: - - activity as tolerated. Make sure to wash hands with soap and water after changing the ostomy bag Call your doctor if you observe: Fever of 101 or Higher, Shortness of breath, Dizziness, Fainting spells, Calf discomfort, - - increasing liquid stool Instructions: Low-Residue Diet Additional Instructions: My cell phone number is [phone]. Give me a call on about the confimatory test for CDIFF called an EIA. Allergies/Adverse Reactions: Allergies No Known Allergies Allergy (Verified 06/13/19 09:57) Medications to take at Discharge Multivit-Min/Iron/Folic/Lutein [Centrum Silver Women Tablet] 1 tab PO DAILY 08/03/18 Ondansetron HCl [Zofran] 8 mg PO PRN PRN 06/13/19 Lactobacillus Acidophilus [Acidophilus] 1 ea PO BID #20 cap 06/15/19 Vancomcyin 125mg/5mL PO Liquid 125 mg PO Q6 #36 po.syringe 06/15/19 The following prescriptions were given: Lactobacillus Acidophilus [Acidophilus] 1 ea PO BID #20 cap Transmission Status: Pending to [id number] Vancomcyin 125mg/5mL PO Liquid 125 mg PO Q6 #36 po.syringe Transmission Status: Pending to [facility] Primary Care Physician: Damon Noriega MD [Primary Care Provider] - Please follow up with your Primary Care Physician in: 1 week Test Results: Test results from this visit will be discussed in further detail at your follow- up appointment, if applicable. Please Follow Up With: Carlo Pittman DO When: as preciously arranged Proposed Discharge Date: 06/15/19
--- NOTE | 2019-06-15 11:23 | DS.PCM_ITS ---
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) Lung nodule (Chronic) Hospital Course and Treatment Imaging Results: Laboratory Results - last 24 hr 06/15/19 06/15/19 06:45 06:45 WBC 1.7 L RBC 3.36 L Hgb 10.2 L Hct 30.7 L MCV 91.4 MCH 30.4 MCHC 33.2 RDW Std Deviation 52.2 H RDW Coeff of Cassi 15.9 H Plt Count 72 L MPV 9.2 Sodium 141 Potassium 3.1 L Chloride 110 H Carbon Dioxide 27.0 Anion Gap 4 L BUN 29 H Creatinine 0.81 Estim Creat Clear Calc 63.21 Est GFR (MDRD) Af Amer 92 Est GFR (MDRD) Non-Af 76 BUN/Creatinine Ratio 35.8 H Glucose 76 Calcium 8.3 L Phosphorus 1.9 L Magnesium 2.3 Microbiology 06/14/19 11:30 Stool Enteric Bacteriology - Final 06/14/19 11:30 Stool C. difficile DNA Amplification - Final Toxigenic C. difficile DNA 06/14/19 11:30 Stool Stool Lactoferrin - Final none Operations: None Procedures: None Summary of Care Provided: Ms. 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 Vital signs at presentation to the emergency department were temperature 96.8, pulse rate 106, blood pressure 92/60, respiratory rate 10 and she was 99% saturated on room air. White blood cell count was low at 3.2 and hemoglobin was increased at 16.4 secondary to hemoconcentration. Platelets were within normal limits. Sodium was low at 126 and the BUN was 105 with a creatinine of 4.55, up from 0.41 in July 2018. Random blood sugar was 266. UA had 0-5 WBCs and was nitrite negative. Last chemo was 06/08. She was admitted to the hospital and IV fluids were continued. An enteric pathogen panel was negative. Stool lactoferrin was negative and the C. difficile was positive. she was placed in contact isolation and started on oral Vancomycin. EIA for C. Diff was ordered. Nausea and vomiting resolved and the patient had no abdominal pain. The high output from the ostomy decreased significantly and the patient was able to maintain adequate oral intake. With hydration the creatinine decreased from 4.55-0.81 at discharge. She was afebrile for the duration of her hospital stay. Prior to discharge she was tolerating a low residue diet. The EIA was not back at the time of DC and so she was given a RX for Vancocin 125 mg Q6H. On 06/17/19 I called her to let her know that the EIA was negative and she could stop the Metronidazole. She will follow up with Dr. Pittman as previously scheduled and with in 1 week. She was instructed to drink enough water to keep her urine a pale yellow. - Physical Exam General: Alert, Oriented x3, Cooperative, No apparent distress HEENT: Atraumatic, PERRLA, EOMI, Normocephalic Oral: No Gingival or Mucosal Lesions/ Ulcerations, Dry Mucosa, - - tongue is coated Neck: Supple, No JVD, Negative Carotid Bruits Lungs: Clear to auscultation, Normal air movement, No rhonchi, No wheeze, No rales Cardiovascular: Regular rate, Regular Rhythm, Normal S1, Normal S2, Murmur - short systolic MM at the apex and the LLSB only, No rub noted, No Gallop Abdomen: Soft, Non Tender, Non-Distended, Hypoactive Bowel Sounds, - - stool in the ostomy bag is yellow/green and is less today....has not emptied the back in several hours. Extremities: No clubbing, No cyanosis, No edema, No Calf Tenderness, Peripheral Pulses Normal Neurological: Cranial nerves II-XII grossly intact, Neuro grossly intact Psych/Mental Status: Normal Affect, Appropriate This note was generated with [employer] software. It may contain incorrect words, spelling, and punctuation that were not noted in checking the note before signing. - Physical Exam Vital Signs Temp Pulse Resp BP Pulse Ox 97.5 F L 80 18 101/54 L 96 06/15/19 09:42 06/15/19 09:42 06/15/19 09:42 06/15/19 09:42 06/15/19 09:42 Oxygen Delivery Method Room Air Weight: 121 lb 0.54 oz Body Mass Index (BMI) 20.1 Intake and Output for Last 24 Hours 06/13/19 06/14/19 06/15/19 23:59 23:59 23:59 Intake Total 4157.5 / 4757.5 5362.5 / 5562.5 2310 / 2310 Output Total 700 / 1300 4425 / 5845 2620 / 2620 Balance 3457.5 / 3457.5 937.5 / -282.5 -310 / -310 Microbiology Past 72 Hours 06/14/19 11:30 Enteric Bacteriology - Final Stool 06/14/19 11:30 C. difficile DNA Amplification - Final Stool Toxigenic C. difficile DNA 06/14/19 11:30 Stool Lactoferrin - Final Stool Laboratory Tests Past 24 Hrs 06/14/19 06/15/19 06/15/19 11:30 06:45 06:45 WBC 1.7 L RBC 3.36 L Hgb 10.2 L Hct 30.7 L MCV 91.4 MCH 30.4 MCHC 33.2 RDW Std Deviation 52.2 H RDW Coeff of Cassi 15.9 H Plt Count 72 L MPV 9.2 Sodium 141 Potassium 3.1 L Chloride 110 H Carbon Dioxide 27.0 Anion Gap 4 L BUN 29 H Creatinine 0.81 Estim Creat Clear Calc 63.21 Est GFR (MDRD) Af Amer 92 Est GFR (MDRD) Non-Af 76 BUN/Creatinine Ratio 35.8 H Glucose 76 Calcium 8.3 L Phosphorus 1.9 L Magnesium 2.3 Miscellaneous Test Pending Discharge Activity: - - activity as tolerated. Make sure to wash hands with soap and water after changing the ostomy bag Call your doctor if you observe: Fever of 101 or Higher, Shortness of breath, Dizziness, Fainting spells, Calf discomfort, - - increasing liquid stool Home Medications: Medications to take at Discharge Multivit-Min/Iron/Folic/Lutein [Centrum Silver Women Tablet] 1 tab PO DAILY 08/03/18 Ondansetron HCl [Zofran] 8 mg PO PRN PRN 06/13/19 Lactobacillus Acidophilus [Acidophilus] 1 ea PO BID #20 cap 06/15/19 Na Biphos/Potassium Phosphate [Neutra-Phos Packet] 1 packet PO TID #12 packet 06/15/19 Vancomcyin 125mg/5mL PO Liquid 125 mg PO Q6 #36 po.syringe 06/15/19 Following Prescrptions Were Given to Patient: Lactobacillus Acidophilus [Acidophilus] 1 ea PO BID #20 cap Transmission Status: Received by [id number] Na Biphos/Potassium Phosphate [Neutra-Phos Packet] 1 packet PO TID #12 packet Transmission Status: Received by [facility] Vancomcyin 125mg/5mL PO Liquid 125 mg PO Q6 #36 po.syringe Transmission Status: Received by [facility] Primary Care Physician: Damon Noriega MD [Primary Care Provider] - Please follow up with your Primary Care Physician in: 1 week Please Follow Up With: Carlo Pittman, DO When: as preciously arranged Patient Instructions: Low-Residue Diet Disposition: Home Minutes spent on discharge:: 30 Patient Condition:: Good Medical Necessity - Tobacco Use Smoking Status: Never smoker Tobacco Use: Non-smoker Meaningful Use Info Meaningful Use Diagnoses (Choose all that apply): None applicable Code Visit Inpatient E&M: 25993 Disch Hosp
--- NOTE | 2019-06-15 11:29 | PCA ---
called to make an apt with primary care physician and tamy from the office will call patient today this afternoon with an apt.
[2019-06-15 12:22] VITALS: BP 122/67; PULSE 80; RESP 18; TEMP 36.8; O2SAT 100
[2019-06-15 13:42] VITALS: BP 122/67; PULSE 80; RESP 18; TEMP 36.8; O2SAT 100
[2019-06-16 09:09] LABS: Pathologist Review Reviewed
[2019-06-16 09:17] LABS: Pathologist Review Reviewed
--- NOTE | 2019-06-16 16:20 | CASEMGMT ---
KIMBERLEE LEVI DC PHONE CALL DC DATE: DC Disposition: Home Diagnosis on Discharge: C-diff LACE/STRATA: 12/27 Intro role of CM to patient via phone. Pt states she has good understanding of instructions. Pt states she was given packets of potassium to drink, however she could not tolerate well. her K was 3.1. RN GURMEET encouraged her to attempt again to take potassium as ordered by physician. She also stated she is buying bananas to eat. Her f/u is with on friday and she is to have lab work completed the. KIMBERLEE LEVI let her know to be sure to have them include K level. Pt states her diarrhea is slowing down. No further questions, no care improvement suggestions given. Ji NUNEZN RN ACM
== END 2019-06-15 13:42 | disposition home or self-care (01) | DRG 682 ==
LOC: ED 12:17 → MS3 12:26
PROVIDERS: Physician Assistant Medical; Admitting Provider Family Medicine; Emergency Provider Emergency Medicine; Family Provider Family Medicine; PCP Family Medicine; Referring Provider Family Medicine; Visit Provider Internal Medicine
DX: N17.9 Acute kidney failure, unspecified (principal); D61.810 Antineoplastic chemotherapy induced pancytopenia; E87.1 Hypo-osmolality and hyponatremia; C78.01 Secondary malignant neoplasm of right lung; C20 Malignant neoplasm of rectum; Z93.3 Colostomy status; E86.0 Dehydration; Z90.49 Acquired absence of other specified parts of digestive tract; E87.8 Other disorders of electrolyte and fluid balance, not elsewhere classified; E87.6 Hypokalemia; T45.1X5A Adverse effect of antineoplastic and immunosuppressive drugs, initial encounter; R63.4 Abnormal weight loss; Z68.20 Body mass index [BMI] 20.0-20.9, adult; R11.2 Nausea with vomiting, unspecified; R19.7 Diarrhea, unspecified
CPT/HCPCS: 36591; 80048; 80053; 81001; 83630; 83735; 84100; 85025; 85027; 87493; 87506; 97802; 99285; J7030; A4216; J2405

== ENCOUNTER 2021-01-02 09:06 | Outpatient (RCR) | payer MEDICARE, SELFPAY ==
[2019-06-13 13:07] VITALS: BMI 20.1
[2021-01-02] MEDS: COVID-19 VACC, MRNA(PFIZER)/PF 30 MCG/0.3 ML SYRINGE IM (17:57)
[2021-01-23] MEDS: COVID-19 VACC, MRNA(PFIZER)/PF 30 MCG/0.3 ML SYRINGE IM (18:02)
== END 2021-03-27 23:59 ==
LOC: IMMUN 09:06
PROVIDERS: PCP Family Medicine; Visit Provider Family Medicine
DX: Z23 Encounter for immunization (principal)
CPT/HCPCS: 0001A; 0002A; 91300